=== PATIENT | male | born 1990 | race African-American/Black ===

== ENCOUNTER 2017-02-13 00:53 | Inpatient (IN) ==
[2017-02-13] MEDS: ALBUTEROL 2.5 MG/3 ML NEB RESP TX SCH (02:10)
[2017-02-13 02:35] LABS: Basophils % 0.3 % (0.0-0.8); Eosinophils # 0.2 10*3/uL (0.0-0.87); Eosinophils % 1.7 % (0.00-10.9); Hematocrit 36.6 VOL% (42.0-52.0); Hemoglobin 11.5 GM/DL (14.0-18.0); Immature Granulocytes % 0.8 %; Immature Granulocytes Absolute 0.08 #; Lymphocytes # 1.9 10*3/uL (1.4-4.0); Lymphocytes % 18.5 % (21.2-54.2); Mean Corpuscular HGB Conc 31.4 GM/DL (32-36); Mean Corpuscular Hemoglobin 22 PG (27-34); Mean Platelet Volume 10.4 FL (9.6-12.0); Monocytes # 0.7 10*3/uL (0.11-0.8); Monocytes % 6.9 % (1.7-12.7); Neutrophils # 7.3 10*3/uL (1.4-7.4); Neutrophils % 71.8 % (38.7-73.9); Platelet Count 279 T/CUMM (130-400); Red Blood Count 5.23 MC/CUMM (3.8-5.5); Red Cell Distribution Width 16.3 % (9.3-17.3); White Blood Count 10.1 T/CUMM (4-12)
[2017-02-13 02:53] LABS: INR 1.1; Partial Thromboplastin Time 32.1 SECS (0-40)
[2017-02-13 02:56] LABS: Bilirubin,Total 0.6 MG/DL (0.2-1.0); Calcium 8.6 MG/DL (8.5-10.1); Magnesium 2.1 MG/DL (1.8-2.4); Osmolality,Calculated 279.4 MOS/KG (273-304); Total Protein 6.9 G/DL (6.4-8.3)
[2017-02-13 02:57] LABS: Troponin I Only 0.05 NG/ML (0.00-0.045)
[2017-02-13] MEDS ORDERED: LEVOFLOXACIN INJ 750 MG in PREMIX 1 EACH IV STA (04:24)
[2017-02-13] MEDS ORDERED: LEVOFLOXACIN INJ 150 ML IV ONE (04:38)
--- NOTE | 2017-02-13 05:09 | Emergency Department Note ---
Pavel Sandhu Brittany, am scribing for, and in the presence of, Samantha Ryan MD 01:49. Connor Sandhu Leanne, MD, personally performed the services described in this documentation, ascribed by Jennifer Zhao in my presence, and it is both accurate and complete . Arrival - Arrival Chief Complaint: Shortness of Breath Stated Complaint: sob ED Nursing Triage Note: Pt brought by EMS with c/o SOB. EMS states pt was sat 88 % on arrival. Pt is now on 4L sat 99%. Pt states he was admitted into [facility] this past Tuesday and was discharge on Tuesday for pneumonia. At discharged pt was placed on a zpack. Zpack has been completed, but pt states he stills feel SOB. Mode of Arrival: Stretcher Limitations: No Limitations Source: Patient, RN Notes Reviewed - History of Present Illness HPI Narrative: Patient is a 26 y/o black male presenting to the ED by EMS from home with c/o shortness of breath with an onset of February 06. Patient reports that on Tuesday he presented to [facility] and was admitted with diagnosis of PNA. He was then discharged February 08 with a prescription for a ZPack. Patient states that since discharge he has not gotten any better and due to excessive coughing he has developed abdominal pain and back pain when taking deep breaths. He is unsure if he has had any fever. Patient reports a history significant for CHF and Bronchitis. Patient does utilize at home Albuterol. Per triage note upon EMS arrival to patient's residence he was noted to have an oxygen saturation of 88%, in room on 4L oxygen via [place] patient has sats of 99%.He has no other complaint/pain. Onset (ago): week(s) (1) Consistency: constant Allergies/Adverse Reactions: Allergies Allergy/AdvReac Type Severity Reaction Status Date / Time No Known Allergies Allergy Unverified 02/13/17 01:06 Home Medications: Home Medications Medication Instructions Recorded Confirmed Type Aspirin [Aspirin EC] 81 mg PO DAILY 02/13/17 02/13/17 History Carvedilol [Coreg] 25 mg PO BID 02/13/17 02/13/17 History Cholecalciferol (Vitamin D3) 1,000 unit PO DAILY 02/13/17 02/13/17 History [Vitamin D3] Digoxin 125 mcg PO DAILY 02/13/17 02/13/17 History Hydralazine HCl 25 mg PO BID 02/13/17 02/13/17 History Spironolactone [Aldactone] 25 mg PO DAILY 02/13/17 02/13/17 History hydroCHLOROthiazide 50 mg PO BID 02/13/17 02/13/17 History [Hydrochlorothiazide] Review of System - Review of System 12 point system: reviewed and no additional remarkable complaints except as stated - Review of System Constitutional: Absent: chills, fever Eyes: Absent: vision change Head/Ears/Nose/Throat: Absent: nasal drainage, sore throat Respiratory: Present: cough, respiratory distress, wheezing Cardiovascular: Absent: chest pain, palpitations Gastrointestinal: Present: abdominal pain. Absent: nausea, vomiting, diarrhea, constipation Genitourinary male: Absent: urgency, dysuria, frequency Musculoskeletal: Present: back pain. Absent: arm pain, leg pain, neck pain Skin: Absent: rash Neurological: Absent: headache Psychiatric: Absent: anxiety, depression Hematological/Lymphatic: Absent: easy bleeding, easy bruising Medical,Surgical,& Family Hx - Medical History Cardio: History of: CHF, Hypertension Respiratory: History of: Bronchitis Exam Vital Signs: Vital Signs Temperature 97.1 F L 02/13/17 00:58 Pulse Rate 106 H 02/13/17 02:40 Respiratory Rate 24 02/13/17 02:40 Blood Pressure 124/89 02/13/17 00:58 O2 Sat by Pulse Oximetry 100 02/13/17 02:40 - General General appearance: alert, in no apparent distress, obese (morbidly) - Head Head exam: Present: atraumatic, normocephalic, normal inspection - Eye Eye exam: Present: normal appearance, PERRL, EOMI - ENT ENT exam: Present: normal exam, normal oropharynx - Neck Neck exam: Present: normal inspection, full ROM, trachea midline - Chest Chest inspection: Present: normal inspection, symmetric chest wall rise - Respiratory Respiratory exam: Present: wheezes (wheezes in left upper lobe). Absent: normal lung sounds bilaterally - Cardiovascular Cardiovascular exam: Present: regular rate, normal rhythm, normal heart sounds. Absent: murmur, rubs, gallop - Abdominal Exam Abdominal exam: Present: soft, normal bowel sounds. Absent: distention, tenderness - Extremities Exam Extremities exam: Present: normal inspection - Back Exam Back exam: Present: normal inspection - Neurological Exam Neurological exam: Present: alert, oriented X3, CN II-XII intact. Absent: motor sensory deficit - Psychiatric Psychiatric exam: Present: normal affect, normal mood - Skin Skin exam: Present: warm, dry, intact, normal color Course Course Narrative: troponin bumped. evidence of chf. given levaquin. admit. Results - Labs CBC & BMP: 02/13/17 02:19 02/13/17 02:19 Lab Results: I have reviewed the patients labs Labs: Laboratory Tests 02/13/17 02:19 WBC 10.1 RBC 5.23 Hgb 11.5 L Hct 36.6 L MCV 70.0 L MCH 22 L MCHC 31.4 L RDW 16.3 Plt Count 279 MPV 10.4 Neut % (Auto) 71.8 Lymph % (Auto) 18.5 L [place] % (Auto) 6.9 Eos % (Auto) 1.7 Baso % (Auto) 0.3 Neut # (Auto) 7.3 Lymph # (Auto) 1.9 [place] # (Auto) 0.7 Eos # (Auto) 0.2 Baso # (Auto) 0.0 Immature Gran % 0.8 Nucleated RBC % 0.0 Immature Gran # 0.08 Nucleated RBCs # 0.00 Laboratory Tests 02/13/17 02/13/17 02:19 02:19 INR 1.1 PT Patient/Control Mix 12.0 D-Dimer, Quantitative 1.0 Circ Anticoag PTT 32.1 Sodium 140 Potassium 4.0 Chloride 102 Carbon Dioxide 29 Anion Gap 13.0 BUN 15 Creatinine 1.00 GFR Calculation 229 BUN/Creatinine Ratio 15.00 Glucose 99 Calculated Osmolality 279.4 Calcium 8.6 Magnesium 2.1 Total Bilirubin 0.60 AST 17 ALT 17 Alkaline Phosphatase 54 Troponin I 0.050 H Total Protein 6.9 Albumin 3.0 L Globulin 3.9 H Albumin/Globulin Ratio 0.7 L Laboratory Tests 02/13/17 02:19 B-Natriuretic Peptide 243 H - Diagnostic Findings Procedure: CT - chest: report reviewed by me (Limited study. No gross pulmonary embolism of the main and proximal left central pulmonary artery. Pulmonary embolism cannot be excluded of the right central pulmonary artery and distal segmental and subsegmental branches bilaterally.) Disposition Clinical Impression: Community acquired pneumonia, Elevated troponin, CHF (congestive heart failure) Case discussed with: patient Condition: Guarded
--- NOTE | 2017-02-13 05:37 | Hospitalist History & Physical ---
Assessment and Plan (1) Community acquired pneumonia Status: Acute Assessment and plan: Failed treatment with azithromycin Given IV Levaquin in the emergency department, continue oral Levaquin IV fluids given that he is definitely not an heart failure exacerbation and has some tachycardia Try to identify the organism: Check pneumonia antigens, sputum culture. Blood cultures ordered by ED Current Visit: Yes (2) Elevated troponin Status: Acute Assessment and plan: Negligibly elevated. No chest pain. CT PE protocol was negative. Likely related to his heart failure. Current Visit: Yes (3) CHF (congestive heart failure) Status: Chronic Assessment and plan: Not currently decompensated. Continue home carvedilol and hydralazine and digoxin. Hold spironolactone and HCTZ as I think you need some fluids. He also has torsemide 40 mg twice daily which he apparently takes as needed but is currently out of. Current Visit: Yes Qualifiers: Congestive heart failure type: systolic Congestive heart failure chronicity : chronic Qualified Code(s): I50.22 - Chronic systolic (congestive) heart failure History of Present Illness Chief complaint: Shortness of breath History of present illness: Mr. Guevara is a 26 year old male with past medical history of hypertension, systolic heart failure that presented with a chief complaint of shortness of breath. Onset gradual. Duration 1 week. Associated with a cough that is sometimes productive. Also associated with pleuritic back pain. Illness began about 2 weeks ago with coughing that eventually led to shortness of breath for which he presented to [facility] and was admitted on Tuesday. He was discharged after 1 day on azithromycin. He is not sure that he ever really got much better. He returns today again for the shortness of breath. He is adamant that this is not at all similar to when he has heart failure exacerbations as he has not had orthopnea and his shoes do not feel tight. His PCP is Sameer Beck. I have reviewed the workup performed in the emergency department including lab and imaging data. I discussed his case with emergency department providers. Home Medications Medication Instructions Recorded Confirmed Type Aspirin [Aspirin EC] 81 mg PO DAILY 02/13/17 02/13/17 History Carvedilol [Coreg] 25 mg PO BID 02/13/17 02/13/17 History Cholecalciferol (Vitamin D3) 1,000 unit PO DAILY 02/13/17 02/13/17 History [Vitamin D3] Digoxin 125 mcg PO DAILY 02/13/17 02/13/17 History Hydralazine HCl 25 mg PO BID 02/13/17 02/13/17 History Spironolactone [Aldactone] 25 mg PO DAILY 02/13/17 02/13/17 History hydroCHLOROthiazide 50 mg PO BID 02/13/17 02/13/17 History [Hydrochlorothiazide] Allergies Allergy/AdvReac Type Severity Reaction Status Date / Time No Known Allergies Allergy Unverified 02/13/17 01:06 Medical,Surgical,& Family Hx - Medical History Cardio: History of: CHF, Hypertension Respiratory: History of: Bronchitis - Family History Family History: Reports;: Additional Family History (Patient denied any family history) - Social History Smoking Status: Former smoker Have you smoked in the last 12 months: No Frequency of Alcohol Use: None Type of Drug Use: None Marital Status: Single Lives With:: Parent Functional capacity: independent ambulation Review of systems: - Constitutional Constitutional: Present: Chills absent: fatigue, fever(s), night sweats, weight loss - EENT Eyes: Absent: blurry vision Ears: Absent: decreased hearing, ear pain Nose, mouth and throat: Absent: nasal congestion, sore throat - Cardiovascular Cardiovascular: Absent: chest pain at rest, chest pain with activity, edema, orthopnea, palpitations - Respiratory Respiratory: Present: Cough, dyspnea absent: hemoptysis - Gastrointestinal Gastrointestinal: Present: Nausea vomiting absent: abdominal pain, constipation , diarrhea, dysphagia, hematemesis, hematochezia, melena - Genitourinary Genitourinary: Absent: difficulty urinating, dysuria, hematuria - Musculoskeletal Musculoskeletal: Absent: arthralgias, joint swelling, myalgias - Neurological Neurological: Absent: confusion, dizziness, focal weakness, headache(s), numbness, paresthesias, syncope - Psychiatric Psychiatric: Absent: anxiety, depression - Endocrine Endocrine: Absent: cold intolerance, heat intolerance, polydipsia, polyuria - Hematologic/Lymphatic Hematologic/Lymphatic: Absent: easy bleeding, easy bruising, lymphadenopathy Exam - Constitutional Vitals: Period Temp Pulse Resp BP Sys/Anderson Pulse Ox Last 24 Hr 97.1 F-97.1 F 103-111 22-24 124-124/89-89 97-100 General appearance: morbidly obese, other (Young -[place] male lying on stretcher pleasant and cooperative) Exam: - Eye Eye exam: Present: EOMI. Absent: conjunctival injection, scleral icterus Pupils: Present: - ENT ENT exam: Present: normal external ear exam, normal oropharynx - Expanded ENT Exam Mouth exam: Present: moist - Neck Neck exam: Present: normal inspection. Absent: lymphadenopathy, thyromegaly - Respiratory Respiratory exam: Present: clear to auscultation bilaterally, tachypneic with shallow respirations. Absent: Rales, rhonchi, wheezes - Cardiovascular Cardiovascular exam: Present: regular rhythm, tachycardia. Absent: diastolic murmur, systolic murmur - GI/Abdominal GI/Abdominal exam: Present: normal bowel sounds, soft. Absent: distended, hyperactive bowel sounds, hypoactive bowel sounds, organomegaly, tenderness, rebound - Extremities Exam Extremities exam: Absent: edema - Neurological Exam Neurological exam: Present: alert, oriented X3, CN II-XII intact. Absent: motor sensory deficit - Psychiatric Psychiatric exam: Present: normal affect - Skin Skin exam: Present: warm, dry. Absent: diaphoretic, rash Results - Labs CBC & BMP: 02/13/17 02:19 02/13/17 02:19 - Diagnostic Findings Procedure: Chest x-ray: report reviewed by me, CT - chest: report reviewed by me
--- NOTE | 2017-02-13 08:01 | CT Report ---
EXAM: CT chest PE study DATE: February 13, 2017 COMPARISON: None REASON: Chest pain, shortness of breath Preliminary report was provided by [facility]. TECHNIQUE: Axial images of the chest were obtained after administration of 100 cc of Omnipaque 350 intravenous contrast. Coronal/sagittal reformatted images and coronal/sagittal MIP images were also acquired. The study was performed per pulmonary embolism protocol. Total DLP was 1620.5 mGy*cm. FINDINGS: Pulmonary arteries: Evaluation of the pulmonary arteries is severely limited by artifact related to the patient's body habitus. No obvious pulmonary embolism is seen within the pulmonary trunk or proximal left pulmonary artery. Vascular/heart: The thoracic aorta is normal in size. Evaluation for aortic dissection is limited by poor opacification of the aorta and artifact from patient body habitus. The heart is upper normal in size. No pericardial effusion is seen. Lymph nodes: No suspicious adenopathy is identified at the chest. Chest wall: Unremarkable. Lungs: No pneumothorax or pleural effusion is identified. Motion artifact makes evaluation of the lungs difficult, but there appear to be a few scattered groundglass opacities within both lungs. This could reflect atelectasis or air trapping. Mild pulmonary edema and pneumonia are thought less likely but are not excluded. Bones: No acute osseous process is identified. Upper abdomen: No acute process is seen within the visualized upper abdomen. IMPRESSION: 1. Evaluation of the pulmonary arteries is severely limited by artifact. No obvious pulmonary embolism is seen within the pulmonary trunk or proximal left pulmonary artery. The remaining pulmonary arteries are suboptimally evaluated. 2. Motion artifact makes evaluation of the lungs difficult, but there appear to be a few scattered groundglass opacities within both lungs. This could reflect atelectasis or air trapping. Mild pulmonary edema and pneumonia are thought less likely but are not excluded. PROCEDURE INTERPRETED AT [facility] DEPARTMENT OF RADIOLOGY Final Report Signed by: Dr. Cory Corona
[2017-02-13] MEDS: ENOXAPARIN 40 MG/0.4 ML SYRINGE SUBCUT SCH (08:45)
[2017-02-13] MEDS: DEXTROSE 5% NACL 0.45% 1,000 ML IV SCH ×2 (08:46→22:30)
[2017-02-13] MEDS: ASPIRIN EC 81 MG TABLET PO SCH (09:03)
[2017-02-13] MEDS: CARVEDILOL 25 MG TABLET PO SCH ×2 (09:03→22:30)
[2017-02-13] MEDS: DIGOXIN 0.125 MG TABLET PO SCH (09:03)
[2017-02-13] MEDS: hydrALAZINE 25 MG TABLET PO SCH ×2 (09:06→22:30)
--- NOTE | 2017-02-13 09:22 | XRay Report ---
Referring Physician: Samantha Ryan Exam: XR chest 1V portable Date: February 13, 2017 at 1:54 AM Reason: Shortness of breath Comparison: None Findings: The cardiac silhouette is mildly prominent, but this could be secondary to the portable technique. There is mild scattered haziness within both lungs, mainly on the right. Evaluation is limited by soft tissue artifact, but this may represent atelectasis. Mild pulmonary edema and pneumonia are in the differential but are thought less likely. Follow-up could be performed. No pneumothorax or pleural effusion is identified. No acute osseous process is seen. Impression: 1. The cardiac silhouette is mildly enlarged, but this could be secondary to the portable technique. 2. There is scattered haziness within both lungs, mainly on the right. Evaluation is limited by soft tissue artifact, but this may represent atelectasis. Mild pulmonary edema and pneumonia are in the differential but are thought less likely. Follow-up could be performed. PROCEDURE INTERPRETED AT [facility] DEPARTMENT OF RADIOLOGY Final Report Signed by: Dr. Cory Corona
[2017-02-13] MEDS: ALBUTEROL/IPRATROPIUM 3 ML NEB RESP TX SCH ×4 (11:38→23:59)
--- NOTE | 2017-02-13 13:04 | Hospitalist Progress Note ---
Assessment and Plan (1) Community acquired pneumonia Status: Acute Assessment and plan: Currently the patient is on ceftriaxone 500 mg p.o. every day this should be changed to 750 IV daily with addition of ceftriaxone 2 g IV every day. Evaluate need of antibiotics in the coming 48 hours. Current Visit: Yes (2) Elevated troponin Status: Acute Assessment and plan: This could be secondary to strain given the suggestion of congestive heart failure and existence of such in the past. Question at this point is why would this gentleman going to acute decompensation of chronic disease that was congestive heart failure. He is coronary ischemia in this fluid overload is not clear to me at this point. Patient does have persistent edema to the lower extremities. He does not acknowledge eating a lot of salt in the ensuing days. Current Visit: Yes (3) CHF (congestive heart failure) Status: Chronic Assessment and plan: Patient comes in with acute decompensation of congestive heart failure. Would need to do his echocardiogram. Repeat EKG in the morning. Pursue serial troponins to see if the change. I would add CPK total CPK-MB for verification of all concerns. Patient is to be seen by cardiology consultation will be put in for tomorrow morning. Current Visit: Yes Qualifiers: Congestive heart failure type: systolic Congestive heart failure chronicity : chronic Qualified Code(s): I50.22 - Chronic systolic (congestive) heart failure Hospitalist: Subjective Interval history: Patient has been seen interviewed and examined. This patient was found sitting on the bedside there was some labored breathing. Obese gentleman was admitted to the hospital yesterday with respiratory distress history of obstructive sleep apnea with CPAP at home which he did not bring to the hospital on this admission. Has a history of what is described as pneumonia which was treated at [facility] did not do well decided to come to this hospital. a few days back and sent back home once on Tuesday. I did review the chest x-ray done in the emergency room which shows significant cardiomegaly with a cephalization of blood vessels suggesting pulmonary edema on the background. Size of the heart cannot be certain given the fact that this was on AP view chest x-ray does have history of congestive heart failure he is troponins were elevated initially but I do not see subsequent ones. He has a working diagnosis of a community- acquired pneumonia failure of treatment from home I am concerned about possibility of cardiac source of his respiratory problems. Exam - Constitutional Vitals: Period Temp Pulse Resp BP Sys/Anderson Pulse Ox Last 24 Hr 97.2 F-98.4 F 94-110 20-28 105-135/58-81 93-98 General appearance: other (Morbidly obese gentleman with obvious chronic hypoventilation syndrome) - Head Head exam: Present: normocephalic, atraumatic - Eye Eye exam: Present: EOMI Pupils: Present: - ENT ENT exam: Present: normal oropharynx ( no lesions in the posterior following), other (He has a short thick neck) - Neck Neck exam: Present: other (Midline trachea no stridor no bruits no obvious adenopathy) - Respiratory Respiratory exam: Present: other (Very distant lung sounds because of the chest girth there is no obvious wheezing or rales and not a cellulitis to bronchophony ) - Cardiovascular Cardiovascular exam: Present: regular rate and rhythm - GI/Abdominal GI/Abdominal exam: Present: normal bowel sounds, soft - Extremities Exam Extremities exam: Present: full ROM (Full range of motion), other (Significant stasis dermatitis with wound VAC changes to the skin in the legs) - Back Exam Back exam: Present: normal inspection - Psychiatric Psychiatric exam: Present: normal affect, normal mood - Skin Skin exam: Present: warm, dry, other (Severe history of stasis dermatitis of the tree-bark changes of the skin) Results - Labs CBC & BMP: 02/13/17 02:19 02/13/17 02:19 Lab Results: I have reviewed the past 24 hour labs
[2017-02-14] MEDS: ALBUTEROL/IPRATROPIUM 3 ML NEB RESP TX SCH ×6 (03:17→23:39)
[2017-02-14] MEDS: ENOXAPARIN 40 MG/0.4 ML SYRINGE SUBCUT SCH (09:18)
[2017-02-14] MEDS: hydrALAZINE 25 MG TABLET PO SCH ×2 (09:19→20:40)
[2017-02-14] MEDS: DIGOXIN 0.125 MG TABLET PO SCH (09:19)
[2017-02-14] MEDS: LEVOFLOXACIN 500 MG TABLET PO SCH (09:19)
[2017-02-14] MEDS: ASPIRIN EC 81 MG TABLET PO SCH (09:19)
[2017-02-14] MEDS: CARVEDILOL 25 MG TABLET PO SCH ×2 (09:19→20:40)
--- NOTE | 2017-02-14 13:45 | Hospitalist Progress Note ---
Assessment and Plan (1) Community acquired pneumonia Status: Acute Assessment and plan: Currently the patient is on ceftriaxone 500 mg p.o. every day this should be changed to 750 IV daily with addition of ceftriaxone 2 g IV every day. Evaluate need of antibiotics in the coming 24 hours. Current Visit: Yes (2) Elevated troponin Status: Acute Assessment and plan: This could be secondary to strain given the suggestion of congestive heart failure and existence of such in the past. Question at this point is why would this gentleman going to acute decompensation of chronic disease that was congestive heart failure. Whether this is coronary ischemia or fluid overload is not clear to me at this point. Patient does have persistent edema to the lower extremities. He does not acknowledge eating a lot of salt in the ensuing days. Current Visit: Yes (3) CHF (congestive heart failure) Status: Chronic Assessment and plan: Obtain an echocardiogram. Will obtain cardiology consultation. To that at this point to be checking cardiac markers. Current Visit: Yes Qualifiers: Congestive heart failure type: systolic Congestive heart failure chronicity : chronic Qualified Code(s): I50.22 - Chronic systolic (congestive) heart failure Hospitalist: Subjective Interval history: Patient been seen interviewed and examined and chart has been reviewed. Is still complaining of a lot of shortness of breath with minimal activity. He still did not needs to be on oxygen to maintain his pulse oximetry is above 90. Gentleman has history of chronic hypoventilation syndrome obstructive sleep apnea morbid obesity possible cor pulmonale. Do not have any access to an echocardiogram report at this point. Will need to do one. Will need help from all cardiology colleagues to pinpoint as to whether what we are doing now is optimal for him. Exam - Constitutional Vitals: Period Temp Pulse Resp BP Sys/Anderson Pulse Ox Last 24 Hr 96.5 F-97.9 F 95-108 20-28 116-152/66-83 95-99 General appearance: morbidly obese - Head Head exam: Present: normocephalic, atraumatic - Eye Eye exam: Present: EOMI Pupils: Present: - ENT ENT exam: Present: normal exam - Neck Neck exam: Present: normal inspection - Respiratory Respiratory exam: Present: other (Distant lung sounds no wheezing no rales patient has a large chest girth) - Cardiovascular Cardiovascular exam: Present: regular rate and rhythm - GI/Abdominal GI/Abdominal exam: Present: normal bowel sounds, soft - Extremities Exam Extremities exam: Present: other (Move all 4 limbs.) - Back Exam Back exam: Present: normal inspection - Neurological Exam Neurological exam: Present: alert, oriented X3, CN II-XII intact - Psychiatric Psychiatric exam: Present: normal affect, normal mood - Skin Skin exam: Present: warm, dry, other (Stasis dermatitis in both lower extremities) Results - Labs CBC & BMP: 02/13/17 02:19 02/13/17 02:19 Lab Results: I have reviewed the past 24 hour labs
--- NOTE | 2017-02-14 18:56 | ECHO Report ---
Dashawn Guevara Exam Date: 02/14/2017 15:05 Referring Physician: Technologist: Tessa Torres RDCS Age: 26 Ht (in): 72 Wt (lb): 560 Gender: M Exam Location: [facility] Echo Indications: Community acquired pneumonia, Elevated troponin, Chronic systolic (congestive) heart failure, Morbid (severe) obesity due to excess calories, Respiratory distress, ELINA BP: 132 / 66 HR: 99 Rhythm: Sinus Technical Quality: Good IMPRESSIONS 1. Left ventricle is severely dilated with severe global hypokinesis and ejection fraction of approximately 15%. There is moderate concentric left ventricular hypertrophy. 2. Mildly dilated right ventricle that may be mildly hypokinetic. 3. Moderately dilated right atrium. 4. Severely dilated left atrium. 5. Mild mitral valve regurgitation. 6. Aortic valve is unremarkable. 7. Moderate to severe tricuspid regurgitation. 8. Mild pulmonic valve insufficiency. MEASUREMENTS (Male / Female) Normal Values 2D ECHO LV Diastolic Diameter PLAX 8.6 cm 4.2 - 5.9 / 3.9 - 5.3 cm LV Systolic Diameter PLAX 8.2 cm LV Fractional Shortening PLAX 4.5 % IVS Diastolic Thickness 1.5 cm 0.6 - 1.0 / 0.6 - 0.9 cm LVPW Diastolic Thickness 1.5 cm 0.6 - 1.0 / 0.6 - 0.9 cm RV Internal Dim ED PLAX 4.0 cm Aortic Root Diameter 3.1 cm LA Systolic Diameter LX 7.2 cm 3.0 - 4.0 / 2.7 - 3.8 cm DOPPLER TR Peak Velocity 362.0 cm/s TR Peak Gradient 52.4 mmHg FINDINGS Left Ventricle Severely increased left ventricular cavity size. Moderate left ventricular hypertrophy. Left ventricular ejection fraction is estimated at 15 %. Right Ventricle Mildly increased right ventricular size. Right Atrium Moderately increased right atrial size. Left Atrium Severely increased left atrial size. Mitral Valve Morphologically normal mitral valve. Mild mitral valve regurgitation. Aortic Valve Morphologically normal aortic valve without significant sclerosis or stenosis. There is no aortic regurgitation. Tricuspid Valve Morphologically normal tricuspid valve. [id number] tricuspid valve regurgitation. Tricuspid regurgitation velocities suggest a PAP of 62 mmHg. Pulmonic Valve Morphologically normal pulmonic valve. Mild pulmonary valve regurgitation. Pericardium Normal pericardium without effusion. Aorta Normal ascending aorta dimension. Jimi Forbes MD (Electronically Signed) Final Date: 14 Feb 2017 18:55
[2017-02-15] MEDS: ALBUTEROL/IPRATROPIUM 3 ML NEB RESP TX SCH ×6 (02:40→23:10)
[2017-02-15] MEDS: ENOXAPARIN 40 MG/0.4 ML SYRINGE SUBCUT SCH (08:56)
[2017-02-15] MEDS: LEVOFLOXACIN 500 MG TABLET PO SCH (08:57)
[2017-02-15] MEDS: ASPIRIN EC 81 MG TABLET PO SCH (08:57)
[2017-02-15] MEDS: CARVEDILOL 25 MG TABLET PO SCH ×2 (08:57→20:47)
[2017-02-15] MEDS: hydrALAZINE 25 MG TABLET PO SCH ×2 (08:58→20:50)
[2017-02-15] MEDS: DIGOXIN 0.125 MG TABLET PO SCH (13:25)
--- NOTE | 2017-02-15 14:35 | Hospitalist Progress Note ---
Hospitalist: Subjective Interval history: Pt coughing up blood tinged yellow sputum. No fever. SOB unchanged this am but improved after starting bronchodilators for a short time per pt. No fever. No nausea or vomiting. +BM. Pt thinks his legs are starting to swell. C/O significant HINES with minimal exertion Exam - Constitutional Vitals: Period Temp Pulse Resp BP Sys/Anderson Pulse Ox Last 24 Hr 96.1 F-98.0 F 95-106 17-24 102-128/45-94 94-100 Exam: Morbidly obese, NAD RRR no M CTAB anteriorly, diminished throughout Soft, NT, ND, +BS difficult to assess for HSM or masses given body habitus Warm no c/c/ trace LE edema, Xerosis; ARNOLD Results - Labs CBC & BMP: 02/13/17 02:19 02/13/17 02:19 - Impressions (1) Community acquired pneumonia bilateral possibly due to GPC, GNR, or atypicals Status: Acute Assessment and plan: Currently the patient is on Levaquin 500 mg po daily. Add bronchodilators and Mucinex. Add PEP therapy. oxygen as needed. Blood cultures 02/13- NGTD. Send sputum culture. Current Visit: Yes (2) Elevated troponin Status: Acute Assessment and plan: This could be secondary to strain given the suggestion of congestive heart failure and existence of such in the past. Question at this point is why would this gentleman going to acute decompensation of chronic disease that was congestive heart failure. Whether this is coronary ischemia or fluid overload is not clear to me at this point. Patient does have persistent edema to the lower extremities. He does not acknowledge eating a lot of salt in the ensuing days. Current Visit: Yes (3) CHF (congestive heart failure) systolic EF 15%, cor pulmonale Status: Chronic Assessment and plan: Echocardiogram reviewed. Awaiting final cards recs. Serial cardiac markers. On Bidil and Coreg. Add Torsemide Current Visit: Yes Qualifiers: Congestive heart failure type: systolic Congestive heart failure chronicity : chronic Qualified Code(s): I50.22 - Chronic systolic (congestive) heart failure (4) Chronic hypoventilation syndrome (5) Obstructive sleep apnea with severe pulmonary hypertension - Needs CPAP hs and may need to add Revatio. - CT chest with PE protocol negative for PE but showed bilateral pneumonia - Consult Pulmonology (6) Morbid obesity - weight loss and physical/dietary modifications recommended. DVT prophylaxis D/W pt and nurse and all questions answered. Specialty Discharge - Follow Up or Referrals
[2017-02-15] MEDS ORDERED: ALBUTEROL 2.5 MG/3 ML NEB RESP TX PRN (14:43)
[2017-02-15] MEDS: ALBUTEROL 2.5 MG/3 ML NEB RESP TX SCH (19:15)
[2017-02-15] MEDS: ISOSORBIDE DINITRATE 20 MG TABLET PO SCH (20:47)
[2017-02-15] MEDS: TORSEMIDE 20 MG TABLET PO SCH (20:47)
[2017-02-16] MEDS: ALBUTEROL 2.5 MG/3 ML NEB RESP TX SCH ×4 (00:22→19:10)
[2017-02-16] MEDS: ALBUTEROL/IPRATROPIUM 3 ML NEB RESP TX SCH ×6 (03:10→23:10)
[2017-02-16 07:15] LABS: Basophils % 0.3 % (0.0-0.8); Eosinophils # 0.2 10*3/uL (0.0-0.87); Eosinophils % 1.5 % (0.00-10.9); Hematocrit 34.6 VOL% (42.0-52.0); Hemoglobin 10.6 GM/DL (14.0-18.0); Immature Granulocytes % 0.9 %; Immature Granulocytes Absolute 0.09 #; Lymphocytes # 1.9 10*3/uL (1.4-4.0); Lymphocytes % 18.4 % (21.2-54.2); Mean Corpuscular HGB Conc 30.6 GM/DL (32-36); Mean Corpuscular Hemoglobin 22 PG (27-34); Mean Corpuscular Volume 70.8 FL (87-102); Mean Platelet Volume 10.6 FL (9.6-12.0); Monocytes # 0.8 10*3/uL (0.11-0.8); Monocytes % 7.4 % (1.7-12.7); Neutrophils # 7.2 10*3/uL (1.4-7.4); Neutrophils % 71.5 % (38.7-73.9); Platelet Count 280 T/CUMM (130-400); Red Blood Count 4.89 MC/CUMM (3.8-5.5); Red Cell Distribution Width 16.3 % (9.3-17.3); White Blood Count 10.1 T/CUMM (4-12)
--- NOTE | 2017-02-16 07:42 | Pulmonology Consult Note ---
Assessment and Plan (1) Community acquired pneumonia Status: Acute Assessment and plan: With the yellow sputum production it is likely that he has bronchopneumonia. Agree with empiric antibiotics. White blood count only 10,000. Patient has not had fever. Current Visit: Yes (2) CHF (congestive heart failure) Status: Chronic Assessment and plan: BNP only slightly elevated to 60. Ejection fraction is 15%. He has some chronic leg edema it has not gotten worse lately. Continue cautious diuresis. Current Visit: Yes Qualifiers: Congestive heart failure type: systolic Congestive heart failure chronicity : chronic Qualified Code(s): I50.22 - Chronic systolic (congestive) heart failure (3) Morbid (severe) obesity with alveolar hypoventilation Status: Chronic Assessment and plan: I suspect he has obesity hypoventilation syndrome. We need ABGs. May need to use Diamox on him. Current Visit: Yes (4) Obstructive sleep apnea on CPAP Status: Chronic Assessment and plan: Patient has been noncompliant with his CPAP. Will get sleep services to sleep. He apparently does not like the way his nasal pillars fit. Current Visit: Yes History of Present Illness Chief complaint: Cough shortness of breath History of present illness: Mr. Guevara is a 26 year old male who weighs 562 pounds. He has obstructive sleep apnea and severe cardiomyopathy with ejection fraction 15%. He has had a cough and congestion for about a month he says. He is coughing up some yellowish sputum and has had some blood-streaked sputum. He apparently was hospitalized for about a day at [facility] a little over a week ago. He was sent home taking Zithromax. He was readmitted here a few days ago with increased cough shortness of breath congestion. His chest x-ray and chest CT show some groundglass type infiltrates primarily in the right lung. Difficult to tell whether this is a bronchopneumonia or pulmonary edema or both. His chest wall thickness makes it difficult to visualize on plain x-ray. The patient is alert and able to answer questions. He relates that he got a CPAP machine about 2 years ago after a sleep study. He gets it from [employer]. He has not been using it much at all. Apparently he has nasal pillars and they do not fit right. He brought his machine in but says that some tubing is broken on it at present. He had a chest CT done with no evidence of pulmonary embolism. Again there is groundglass infiltrates bilaterally that I would think is most likely pulmonary edema. Patient's echo has shown a 15% ejection fraction and secondary pulmonary hypertension. Estimated peak from the artery pressure of 62. There have been no ABGs done. Patient has chronic leg edema but says it has not been worse. Home Medications Medication Instructions Recorded Confirmed Type Aspirin [Aspirin EC] 81 mg PO DAILY 02/13/17 02/13/17 History Carvedilol [Coreg] 25 mg PO BID 02/13/17 02/13/17 History Cholecalciferol (Vitamin D3) 1,000 unit PO DAILY 02/13/17 02/13/17 History [Vitamin D3] Digoxin 125 mcg PO DAILY 02/13/17 02/13/17 History Hydralazine HCl 25 mg PO BID 02/13/17 02/13/17 History Losartan Potassium 100 mg PO DAILY 02/13/17 02/13/17 History Spironolactone [Aldactone] 25 mg PO DAILY 02/13/17 02/13/17 History Torsemide 20 mg PO BID 02/13/17 02/13/17 History hydroCHLOROthiazide 50 mg PO BID 02/13/17 02/13/17 History [Hydrochlorothiazide] Allergies Allergy/AdvReac Type Severity Reaction Status Date / Time No Known Allergies Allergy Unverified 02/13/17 01:06 12 point system: reviewed and no additional remarkable complaints except as stated - Constitutional Constitutional: Present: chills - Cardiovascular Cardiovascular: Present: dyspnea, dyspnea on exertion, orthopnea - Respiratory Respiratory: Present: cough, dyspnea, hemoptysis, change in phlegm color - Gastrointestinal Gastrointestinal: Present: nausea Exam (Pulmonay) H&P - Constitutional Vitals: Period Temp Pulse Resp BP Sys/Anderson Pulse Ox Last 24 Hr 96.8 F-98.7 F 89-108 18-24 96-128/45-73 92-99 Exam: Patient is alert and seems oriented. Vital signs normal except pulse around 105. O2 sat 97% on nasal oxygen. Pupils react to light. He has some exophoria. Throat is clear. Neck supple no bruits. Chest sounds clear. Breath sounds are distant and difficult to tell. Heart rapid rate normal rhythm no murmurs. Abdomen grand obese unable to palpate abdominal organs. Extremities she has some chronic woody edema in both lower extremities calves are nontender. Medical,Surgical,& Family Hx - Medical History Cardio: History of: CHF, Hypertension Respiratory: History of: Bronchitis, Pneumonia (this admission) - Family History Family History: Reports;: Additional Family History (Patient denied any family history) - Social History Smoking Status: Former smoker Frequency of Alcohol Use: None Type of Drug Use: None Results - Labs CBC & BMP: 02/16/17 07:03 02/13/17 02:19 Lab Results: I have reviewed the past 24 hour labs - Diagnostic Findings Procedure: Chest x-ray: image reviewed by me (Hazy infiltrate more on the right than the left.), CT - chest: image reviewed by me (Groundglass infiltrates again more on the right than the left. Suggestive more of pulmonary edema.) Specialty Discharge - Follow Up or Referrals
[2017-02-16 07:49] LABS: Calcium 8.5 MG/DL (8.5-10.1); Magnesium 2.2 MG/DL (1.8-2.4); Osmolality,Calculated 273.8 MOS/KG (273-304)
[2017-02-16 08:00] LABS: Albumin 3.1 G/DL (3.4-5.0); Calcium 8.5 MG/DL (8.5-10.1); Free T4 (Free Thyroxine) 1.56 NG/DL (0.76-1.46); Osmolality,Calculated 273.8 MOS/KG (273-304); Phosphorous 4.6 MG/DL (2.5-4.9); Thyroid Stimulating Hormone 1.6 uIU/ml (0.358-3.74)
[2017-02-16] MEDS: ENOXAPARIN 40 MG/0.4 ML SYRINGE SUBCUT SCH (09:14)
[2017-02-16] MEDS: hydrALAZINE 25 MG TABLET PO SCH ×2 (09:16→20:58)
[2017-02-16] MEDS: ASPIRIN EC 81 MG TABLET PO SCH (09:16)
[2017-02-16] MEDS: DIGOXIN 0.125 MG TABLET PO SCH (09:16)
[2017-02-16] MEDS: CARVEDILOL 25 MG TABLET PO SCH ×2 (09:17→20:56)
[2017-02-16] MEDS: LEVOFLOXACIN 500 MG TABLET PO SCH (09:19)
[2017-02-16] MEDS: TORSEMIDE 20 MG TABLET PO SCH ×2 (09:21→20:57)
[2017-02-16] MEDS: ISOSORBIDE DINITRATE 20 MG TABLET PO SCH ×3 (09:22→20:57)
[2017-02-16 09:33] LABS: Allen Test Positive
[2017-02-16 09:34] LABS: ABG Base Excess 3.2 MMOL/L (-2.5-2.5); ABG HCO3 27.3 MMOL/L (20-26); ABG Oxygen Saturation 98.2 % (95-100); ABG PCO2 50.6 MM HG (35-48); ABG PH 7.371 (7.35-7.45); ABG TCO2 26.5 MMOL/L (23-27)
--- NOTE | 2017-02-16 10:23 | Hospitalist Progress Note ---
Hospitalist: Subjective Interval history: Pt states SOB and cough has improved. No cp. Slept well. Tolerating po. No abd pain. BLE is better. Exam - Constitutional Vitals: Period Temp Pulse Resp BP Sys/Anderson Pulse Ox Last 24 Hr 96.8 F-98.7 F 89-108 18-24 96-128/45-73 92-99 Exam: Morbidly obese, NAD RRR no M CTAB anteriorly, diminished throughout Soft, NT, ND, +BS difficult to assess for HSM or masses given body habitus Warm no c/c/ no edema, Xerosis; ARNOLD Results - Labs CBC & BMP: 02/16/17 07:03 02/16/17 07:03 - Impressions (1) Community acquired pneumonia bilateral possibly due to GPC, GNR, or atypicals Status: Acute Assessment and plan: Currently the patient is on Levaquin 500 mg po daily. Cont bronchodilators, Mucinex and pulmonary toileting with PEP/ IPPB therapy. oxygen as needed. Blood cultures 02/13- NGTDx x 3 days. 02/15 Sputum culture no growth to date. Current Visit: Yes (2) Elevated troponin Status: Acute Assessment and plan: This could be secondary to strain given the suggestion of congestive heart failure. Cards consulted and awaiting input. Current Visit: Yes (3) CHF (congestive heart failure) systolic EF 15%, cor pulmonale Status: Chronic Assessment and plan: Echocardiogram reviewed. Awaiting final cards recs. Serial cardiac markers. On Bidil, Coreg and Torsemide ? Diamox per pulm Current Visit: Yes Qualifiers: Congestive heart failure type: systolic Congestive heart failure chronicity : chronic Qualified Code(s): I50.22 - Chronic systolic (congestive) heart failure (4) Chronic hypoventilation syndrome - mgt per pulm. F/u ABG (5) Obstructive sleep apnea with severe pulmonary hypertension - Needs CPAP hs and may need to add Revatio. - CT chest with PE protocol negative for PE but showed bilateral pneumonia - Appreciate Pulmonology (6) Morbid obesity - weight loss and physical/dietary modifications recommended. DVT prophylaxis D/W pt, nurse, and charge nurse and all questions answered. Specialty Discharge - Follow Up or Referrals
--- NOTE | 2017-02-16 14:02 | Sleep Medicine Consult ---
Assessment and Plan (1) Obstructive sleep apnea on CPAP Status: Chronic Assessment and plan: Mr. Guevara's current CPAP supplies are in poor condition and should be disposed of. His device is outdated and does not have up to date software needed to ensure his sleep apnea is controlled. I will order a CPAP autotitration using one of the sleep labs devices with a pressure ranging from 8cm-20cm to determine his most effective pressure setting as he has gained over 40 pounds since his original diagnosis. He will need to utilize his device throughout his sleep time along with oxygen. I reviewed the results of his overnight polysomnography from March 2014 and explained the severity of his sleep apnea as well as the risks and benefits of treatment. He is willing to try CPAP therapy again. I will request his data be downloaded from his device in the morning to assess his response. Current Visit: Yes History of Present Illness Chief complaint: SOB/Sleep apnea History of present illness: Mr. Guevara is a 26 year old male with a known history of obstructive sleep apnea. He underwent overnight polysomnography in March 2014 and was positive for moderate obstructive sleep apnea with a diagnostic AHI of 28.2 and oxygen desaturations as low as 79%. His study was done in a split-night fashion due to the severity of findings and he was titrated to a CPAP pressure of 8 cm. At the time of diagnosis, he was 516 pounds. He did not maintain routine follow up appointments with the sleep clinic. His CPAP device was a "donation" from a family member and he reports using CPAP faithfully for 3-4 months following his diagnosis. He discontinued CPAP due to mask and tubing issues and has remained non-compliant with therapy ever since. He was admitted to the hospital with cough and shortness of breath earlier this week. He is currently being treated for community-acquired pneumonia along with congestive heart failure. His echocardiogram shows an ejection fraction of only 15%. He is morbidly obese and now weighs 560 pounds. He is sitting upright utilizing oxygen per nasal cannula at 2 L/min. He is not short of breath currently and is feeling a little better today. Home Medications Medication Instructions Recorded Confirmed Type Aspirin [Aspirin EC] 81 mg PO DAILY 02/13/17 02/13/17 History Carvedilol [Coreg] 25 mg PO BID 02/13/17 02/13/17 History Cholecalciferol (Vitamin D3) 1,000 unit PO DAILY 02/13/17 02/13/17 History [Vitamin D3] Digoxin 125 mcg PO DAILY 02/13/17 02/13/17 History Hydralazine HCl 25 mg PO BID 02/13/17 02/13/17 History Losartan Potassium 100 mg PO DAILY 02/13/17 02/13/17 History Spironolactone [Aldactone] 25 mg PO DAILY 02/13/17 02/13/17 History Torsemide 20 mg PO BID 02/13/17 02/13/17 History hydroCHLOROthiazide 50 mg PO BID 02/13/17 02/13/17 History [Hydrochlorothiazide] Allergies Allergy/AdvReac Type Severity Reaction Status Date / Time No Known Allergies Allergy Unverified 02/13/17 01:06 - Constitutional Constitutional: Present: daytime sleepiness, excessive sweating, fatigue, night sweats, stops breathing during sleep, weight gain - EENT Nose, mouth and throat: Present: nasal congestion - Cardiovascular Cardiovascular: Present: dyspnea on exertion, edema - Respiratory Respiratory: Present: cough, snoring - Gastrointestinal Gastrointestinal: Present: heartburn - Musculoskeletal Musculoskeletal: Present: limited range of motion - Endocrine Endocrine: Present: heat intolerance Exam (Pulmonay) H&P - Constitutional Vitals: Period Temp Pulse Resp BP Sys/Anderson Pulse Ox Last 24 Hr 96.8 F-98.7 F 89-108 18-24 96-128/45-62 92-99 General appearance: morbidly obese - Head Head exam: Present: normocephalic, atraumatic - ENT ENT exam: Present: other (Mallampati class IV, large tongue) - Expanded ENT Exam ENT Exam Mouth exam: Present: moist - Neck Neck exam: Absent: lymphadenopathy, tenderness - Respiratory Respiratory exam: Present: decreased breath sounds, wheezes - Cardiovascular Cardiovascular exam: Present: regular rate and rhythm - GI/Abdominal GI/Abdominal exam: Present: normal bowel sounds, soft. Absent: tenderness - Extremities Exam Extremities exam: Present: edema (2+ edema with compression hose intact) - Neurological Exam Neurological exam: Present: oriented X3 - Psychiatric Psychiatric exam: Present: normal mood - Skin Skin exam: Present: warm, dry Medical,Surgical,& Family Hx - Medical History Cardio: History of: CHF, Hypertension Endocrine: No history of: Diabetes Mellitus (NIDDM) Respiratory: History of: Bronchitis, Obstructive Sleep Apnea, Pneumonia (this admission), Respiratory Problems Gastrointestinal: History of: GERD - Family History Family History: Reports;: Additional Family History (Patient denied any family history) - Social History Smoking Status: Former smoker Frequency of Alcohol Use: None Type of Drug Use: None Results - Labs CBC & BMP: 02/16/17 07:03 02/16/17 07:03 Specialty Discharge - Follow Up or Referrals
--- NOTE | 2017-02-16 16:07 | Cardiology Consult Note ---
I, Sivan Carroll RN, am scribing for, and in the presence of, Avery Muse MD 16:07. Assessment and Plan - Time spent with patient Time spent with patient: Greater than 30 minutes (due to assessment, planning, documentation, med review) (1) CHF (congestive heart failure) Status: Chronic Assessment and plan: I examined and interviewed Mr. Guevara February 15, 2017 ordered medicine for him. However I did not complete the note until today. This is a late entry for my assessment and plan yesterday. 26-year-old severely, morbidly obese AA male with past medical history of hypertension, systolic CHF, hypoventilation syndrome, and obstructive sleep apnea. He is now admitted for treatment of pneumonia. Echocardiogram this admission with severely reduced LV function, LV ejection fraction is estimated at 15%, and severe pulmonary hypertension with a PA pressure of 62 mmHg. INITIAL CONSULT FEBRUARY 15, 2017: ASSESSMENT/PLAN: 1. 26-year-old morbidly obese bpm with reported long history of cardiomyopathy/ heart failure followed by cardiology in [facility], with untreated ELINA, now being treated with pneumonia (admitted at [facility] for less than 2 days, and came here when he did not improve), with medical noncompliance (missed several days prior to admission), with severe cardiomyopathy and at least moderate LVH ( EF 15%) associated with significant pulmonary hypertension (PA P 62 mmHg plus RAP) 2. Add nitrates to hydralazine 3. Continue Coreg and diuresis 4. Follow-up electrolytes and renal function 5. Consult sleep medicine to see if adjustments can be made "my machine is not working right", and help him with compliance with CPAP. 6. He drinks quite a bit of juice; discussed avoiding all calorie drinks; he only drink eats once or twice a daywe discussed eating 3-4 times per day to help him lose weight. We briefly discussed bariatric intervention, but I believe he is not stable enough for that at this time. Current Visit: Yes Qualifiers: Congestive heart failure type: systolic Congestive heart failure chronicity : chronic Qualified Code(s): I50.22 - Chronic systolic (congestive) heart failure (2) Community acquired pneumonia Status: Acute Current Visit: Yes (3) Troponin I above reference range Status: Acute Current Visit: Yes (4) Obstructive sleep apnea on CPAP Status: Chronic Current Visit: Yes (5) Hypertension Status: Chronic Current Visit: Yes (6) Morbid (severe) obesity with alveolar hypoventilation Status: Chronic Current Visit: Yes History of Present Illness - Data of Consult Patient: new to practice Consult date: 02/15/17 Requesting Physician: Efrain Garcia - Consult Narrative Reason for consult: CHF History of present illness: PRIMARY COMPETITIVE INTELLIGENCE ANALYST: DR. RANGEL ([place]) PCP: DR. GIBSON DURAND CARDIOLOGY CONSULT NOTE: CHF Mr. Guevara is a 26 year old black male who is not routinely followed by [facility] cardiology. Past medical history includes hypertension, systolic CHF, chronic bronchitis, obstructive sleep apnea with CPAP, and severe morbid obesity. Patient presented to [facility] ER on 02/13 with complaints of shortness of breath , and was noted to have oxygen saturation level of 88% with improvement after initiation of supplemental O2. He reported he had been previously evaluated at [facility] emergency room on 02/12, was diagnosed with pneumonia, prescribed azithromycin, and was discharged home. He continued to feel short of breath, had excessive coughing and developed some abdominal pain and back pain with deep breathing, and this prompted his presentation to [facility]. Chest x-ray showed scattered haziness bilaterally and more dominant and right lung, and this was suggestive of atelectasis. X-ray also revealed possible mild pulmonary edema and/or underlying pneumonia. Normal troponin level is 0.050 and BNP 243. He denied recent or current orthopnea, PND, or increase in LE edema. Chest CT obtained and was a technically difficult study due to patient's body habitus, but no evidence of pulmonary embolus appreciated. Patient was admitted per hospital medicine for further observation and treatment. Echocardiogram on 02/13 with moderate LVH and severely reduced LV ejection fraction at 15%, moderate to severe TR with a PA pressure of 62 mmHg. Cardiology has been consulted for evaluation of congestive heart failure. Patient seen and examined. He is sleeping soundly at this time, and he does not appear to be experiencing any respiratory distress. He arouses easily, and he does admit to some shortness of breath but does not feel that it has worsened in severity since admission. Patient reportedly uses CPAP machine regularly, but he did not bring this from home to the hospital. He is being supplemented with oxygen via nasal cannula. Denies any recent or current chest pain. Reports he typically uses 2 pillows to breathe comfortably while sleeping at night at home. Denies acute orthopnea or recent need to use more than 2 pillows. No PND, palpitations, or presyncope. He is noted to have bilateral lower extremity edema, nonpitting, with venous stasis change seen. No recent fever or chills. Productive cough with yellow sputum production. His blood pressure is controlled with systolic BP 110 -130 mmHg. EKG is sinus rhythm, pulse rate 90s, and no disturbance seen. No labs available for review this AM. CC: Dorina Ellis MD - Home Medications and Allergies Home Medications: Home Medications Medication Instructions Recorded Confirmed Type Aspirin [Aspirin EC] 81 mg PO DAILY 02/13/17 02/13/17 History Carvedilol [Coreg] 25 mg PO BID 02/13/17 02/13/17 History Cholecalciferol (Vitamin D3) 1,000 unit PO DAILY 02/13/17 02/13/17 History [Vitamin D3] RX: Digoxin 125 mcg PO DAILY 02/13/17 02/13/17 History RX: Hydralazine HCl 25 mg PO BID 02/13/17 02/13/17 History RX: Losartan Potassium 100 mg PO DAILY 02/13/17 02/13/17 History RX: Torsemide 20 mg PO BID 02/13/17 02/13/17 History RX: hydroCHLOROthiazide 50 mg PO BID 02/13/17 02/13/17 History [Hydrochlorothiazide] Spironolactone [Aldactone] 25 mg PO DAILY 02/13/17 02/13/17 History Allergies/Adverse Reactions: Allergies Allergy/AdvReac Type Severity Reaction Status Date / Time No Known Allergies Allergy Unverified 02/13/17 01:06 - Constitutional Constitutional: Present: as per HPI - EENT Eyes: Present: as per HPI Nose, mouth and throat: Present: as per HPI - Cardiovascular Cardiovascular: Present: as per HPI - Respiratory Respiratory: Present: as per HPI - Genitourinary Genitourinary: Present: as per HPI - Musculoskeletal Musculoskeletal: Present: as per HPI - Neurological Neurological: Present: as per HPI - Psychiatric Psychiatric: Present: as per HPI - Endocrine Endocrine: Present: as per HPI - Hematologic/Lymphatic Hematologic/Lymphatic: Present: as per HPI Medical,Surgical,& Family Hx - Medical History Cardio: History of: CHF, Hypertension No history of: Cardiac Dysrhythmia, [place], Valvular Heart Disease Psychological: No history of: Depression Neurology: No history of: Dementia, TIA Endocrine: No history of: Diabetes Mellitus (IDDM), Diabetes Mellitus (NIDDM), Thyroid Disorder Rheumatology: No history of;: Fibromyalgia, Gout Respiratory: History of: Bronchitis, Obstructive Sleep Apnea, Pulmonary Hypertension, Pneumonia (this admission) No history of: COPD Renal: No history of: Renal Failure Gastrointestinal: No history of: GERD, Gastrointestinal Bleed, Hepatitis Musculoskeletal: No history of: Back/Neck Problems Hematology: No history of: Anemia, Bleeding Problems Other: No history of: Cancer - Surgical History Cardiac Surgeries: Patient Denies: Internal Defibrillator - Family History Family History: Reports;: Additional Family History (Patient denied any family history) - Social History Smoking Status: Former smoker Frequency of Alcohol Use: None Type of Drug Use: None Physical Examination Vital Signs Temp Pulse Resp BP Pulse Ox 97.1 F L 111 H 22 124/89 98 02/13/17 00:53 02/13/17 00:53 02/13/17 00:53 02/13/17 00:53 02/13/17 00:53 General: Present: No Apparent Distress, Other (severely, morbidly obese) HEENT: Present: PERRL, Normocephaly, Mucus Membranes Moist. Absent: Jaundice Neck: Present: Supple Neck, Midline Trachea, Other (unable to adequately assess JVD due to body habitus) Cardiac: Present: Reg Rate and Rhythm, No Murmur, Tachycardia. Absent: Bradycardia Lungs: Present: Normal Exam, Clear Ascult./Percussion (lung sounds distant, hard to auscultate due to severe body habitus), Oxygen, No Wheeze, Rales, Rhonchi Neuro: Present: Grossly Intact. Absent: Numbness, Weakness, Resting Tremor, Essential Tremor Abdomen: Present: Soft, Active Bowel Sounds, Other (morbidly obese). Absent: Tender, Firm Skin: Present: Clear. Absent: Bruising Extremities: Present: No Clubbing, No Cyanosis, Normal Upper Extr. Pulses (2-3+ bilaterally), Normal Lower Extr. Pulses (1-2+ bilaterally), Edema (trace pretibial), Other (chronic venous stasis changes to BLE's.) Result/EKG - Labs CBC & BMP: 02/16/17 07:03 02/16/17 07:03 Lab Results: I have reviewed the past 24 hour labs Labs: Laboratory Results - last 24 hr 02/16/17 02/16/17 02/16/17 07:03 07:03 07:03 WBC 10.1 RBC 4.89 Hgb 10.6 L Hct 34.6 L MCV 70.8 L MCH 22 L MCHC 30.6 L RDW 16.3 Plt Count 280 MPV 10.6 Neut % (Auto) 71.5 Lymph % (Auto) 18.4 L [place] % (Auto) 7.4 Eos % (Auto) 1.5 Baso % (Auto) 0.3 Neut # (Auto) 7.2 Lymph # (Auto) 1.9 [place] # (Auto) 0.8 Eos # (Auto) 0.2 Baso # (Auto) 0.0 Immature Gran % 0.9 Nucleated RBC % 0.0 Immature Gran # 0.09 Nucleated RBCs # 0.00 ABG pH ABG pCO2 ABG pO2 ABG HCO3 ABG Total CO2 ABG O2 Saturation ABG Base Excess FiO2 Sodium 137 Potassium 4.0 Chloride 101 Carbon Dioxide 30 Anion Gap 10.0 BUN 16 Creatinine 1.10 GFR Calculation 204 BUN/Creatinine Ratio 14.00 Glucose 102 Calculated Osmolality 273.8 Calcium 8.5 Phosphorus 4.6 Magnesium B-Natriuretic Peptide 442 H Albumin 3.1 L Free T4 1.56 H TSH 3rd Generation 1.600 02/16/17 02/16/17 07:03 09:21 WBC RBC Hgb Hct MCV MCH MCHC RDW Plt Count MPV Neut % (Auto) Lymph % (Auto) [place] % (Auto) Eos % (Auto) Baso % (Auto) Neut # (Auto) Lymph # (Auto) [place] # (Auto) Eos # (Auto) Baso # (Auto) Immature Gran % Nucleated RBC % Immature Gran # Nucleated RBCs # ABG pH 7.371 ABG pCO2 50.6 H ABG pO2 109.0 H ABG HCO3 27.3 H ABG Total CO2 26.5 ABG O2 Saturation 98.2 ABG Base Excess 3.2 H FiO2 28.00 Sodium 137 Potassium 4.0 Chloride 101 Carbon Dioxide 30 Anion Gap 10.0 BUN 16 Creatinine 1.10 GFR Calculation 204 BUN/Creatinine Ratio 14.00 Glucose 103 Calculated Osmolality 273.8 Calcium 8.5 Phosphorus Magnesium 2.2 B-Natriuretic Peptide Albumin Free T4 TSH 3rd Generation - Diagnostic Findings Procedure: Chest x-ray: image reviewed by me, report reviewed by me, CT - chest : image reviewed by me, report reviewed by me - EKG EKG results: interpreted by me, no acute changes EKG shows: sinus rhythm Micha Sandhu Randall Scott, MD, personally performed the services described in this documentation, ascribed by Sivan Carroll RN in my presence, and it is both accurate and complete 607 .
--- NOTE | 2017-02-16 16:11 | Cardiology Progress Note ---
I, Sivan Carroll RN, am scribing for, and in the presence of, Avery Muse MD 16:11. Assessment and Plan - Time spent with patient Time spent with patient: Greater than 30 minutes (1) CHF (congestive heart failure) Status: Chronic Assessment and plan: 26-year-old severely, morbidly obese AA male with past medical history of hypertension, systolic CHF, hypoventilation syndrome, and obstructive sleep apnea. He is now admitted for treatment of pneumonia. Echocardiogram this admission with severely reduced LV function, LV ejection fraction is estimated at 15%, and severe pulmonary hypertension with a PA pressure of 62 mmHg. INITIAL CONSULT FEBRUARY 15, 2017: ASSESSMENT/PLAN: 1. 26-year-old morbidly obese bpm with reported long history of cardiomyopathy/ heart failure followed by cardiology in [facility], with untreated ELINA, now being treated with pneumonia (admitted at [place] for less than 2 days, and came here when he did not improve), with medical noncompliance (missed several days prior to admission), with severe cardiomyopathy and at least moderate LVH ( EF 15%) associated with significant pulmonary hypertension (PA P 62 mmHg plus RAP) 2. Add nitrates to hydralazine 3. Continue Coreg and diuresis 4. Follow-up electrolytes and renal function 5. Consult sleep medicine to see if adjustments can be made "my machine is not working right", and help him with compliance with CPAP. 6. He drinks quite a bit of juice; discussed avoiding all calorie drinks; he only drink eats once or twice a daywe discussed eating 3-4 times per day to help him lose weight. We briefly discussed bariatric intervention, but I believe he is not stable enough for that at this time. UPDATE FEBRUARY 16, 2017: ASSESSMENT/PLAN: 1. Hemodynamically stable, tolerating addition of isosorbide 2. Sleep medicine is assessing to try to help treat his ELINA 3. Increase Coreg to 37.5 mg twice daily which will be maximum dosage for him 4. Continue hydralazine and diuresis 5. Check follow-up renal function and electrolytes 6. I have size again need for significant weight loss (drinking cranberry juice ) Current Visit: Yes Qualifiers: Congestive heart failure type: systolic Congestive heart failure chronicity : chronic Qualified Code(s): I50.22 - Chronic systolic (congestive) heart failure (2) Community acquired pneumonia Status: Acute Current Visit: Yes (3) Troponin I above reference range Status: Acute Current Visit: Yes (4) Obstructive sleep apnea on CPAP Status: Chronic Current Visit: Yes (5) Hypertension Status: Chronic Current Visit: Yes (6) Morbid (severe) obesity with alveolar hypoventilation Status: Chronic Current Visit: Yes Cardiology - PN: Subj Interval history: PRIMARY AUDIT REVIEWER: DR. RANGEL ([place]) PCP: DR. GIBSON DURAND SUMMARY: Mr. Guevara is a 26 year old black male who is not routinely followed by [facility] cardiology. Past medical history includes hypertension, systolic CHF, chronic bronchitis, obstructive sleep apnea with CPAP, and severe morbid obesity. Patient presented to [facility] ER on 02/13 with complaints of shortness of breath , and was noted to have oxygen saturation level of 88% with improvement after initiation of supplemental O2. He reported he had been previously evaluated at [place] emergency room on 02/12, was diagnosed with pneumonia, prescribed azithromycin, and was discharged home. He continued to feel short of breath, had excessive coughing and developed some abdominal pain and back pain with deep breathing, and this prompted his presentation to [facility]. Chest x-ray showed scattered haziness bilaterally and more dominant and right lung, and this was suggestive of atelectasis. X-ray also revealed possible mild pulmonary edema and/or underlying pneumonia. Normal troponin level is 0.050 and BNP 243. He denied recent or current orthopnea, PND, or increase in LE edema. Chest CT obtained and was a technically difficult study due to patient's body habitus, but no evidence of pulmonary embolus appreciated. Patient was admitted per hospital medicine for further observation and treatment. Echocardiogram on 02/13 with moderate LVH and severely reduced LV ejection fraction at 15%, moderate to severe TR with a PA pressure of 62 mmHg. Cardiology has been consulted for evaluation of congestive heart failure. FEBRUARY 16, 2017: Patient is sitting up on side of bed this afternoon in no apparent distress. He is awake and alert. Denies chest pain or discomfort. Reports he still continues to experience shortness of breath and productive cough, but it has not worsened in severity since previous exam. Admits to easy fatigability and dyspnea on exertion getting up to bedside chair and with ambulation to bathroom and back to bed. He is eating lunch at this time with good appetite, no N/V. Pulse rate 90s and regular. BP is suboptimally controlled today with SBP 170-205 and DBP 100-115. Potassium is 5.2, magnesium 2.4. WBC is elevated to 14,700 today and sputum C&S pending. Creatinine improved and is 2.1 today. Exam (Progress Note) - Constitutional Vitals: Period Temp Pulse Resp BP Sys/Anderson Pulse Ox Last 24 Hr 96.8 F-98.7 F 89-108 18-24 96-128/45-73 92-99 Exam: General: Present: No Apparent Distress, Other (severely, morbidly obese) HEENT: Present: PERRL, Normocephaly, Mucus Membranes Moist. Absent: Jaundice Neck: Present: Supple Neck, Midline Trachea, Other (unable to adequately assess JVD due to body habitus) Cardiac: Present: Reg Rate and Rhythm, No Murmur, Tachycardia. Absent: Bradycardia Lungs: Present: Normal Exam, Clear Ascult./Percussion (lung sounds distant, hard to auscultate due to severe body habitus), Oxygen, No Wheeze, Rales, Rhonchi Neuro: Present: Grossly Intact. Absent: Numbness, Weakness, Resting Tremor, Essential Tremor Abdomen: Present: Soft, Active Bowel Sounds, Other (morbidly obese). Absent: Tender, Firm Skin: Present: Clear. Absent: Bruising Extremities: Present: No Clubbing, No Cyanosis, Normal Upper Extr. Pulses (2-3+ bilaterally), Normal Lower Extr. Pulses (1-2+ bilaterally), Edema (trace pretibial), Other (chronic venous stasis changes to BLE's.) Result/EKG - Labs CBC & BMP: 02/16/17 07:03 02/16/17 07:03 Lab Results: I have reviewed the past 24 hour labs Labs: Laboratory Results - last 24 hr 02/16/17 02/16/17 02/16/17 07:03 07:03 07:03 WBC 10.1 RBC 4.89 Hgb 10.6 L Hct 34.6 L MCV 70.8 L MCH 22 L MCHC 30.6 L RDW 16.3 Plt Count 280 MPV 10.6 Neut % (Auto) 71.5 Lymph % (Auto) 18.4 L [place] % (Auto) 7.4 Eos % (Auto) 1.5 Baso % (Auto) 0.3 Neut # (Auto) 7.2 Lymph # (Auto) 1.9 [place] # (Auto) 0.8 Eos # (Auto) 0.2 Baso # (Auto) 0.0 Immature Gran % 0.9 Nucleated RBC % 0.0 Immature Gran # 0.09 Nucleated RBCs # 0.00 ABG pH ABG pCO2 ABG pO2 ABG HCO3 ABG Total CO2 ABG O2 Saturation ABG Base Excess FiO2 Sodium 137 Potassium 4.0 Chloride 101 Carbon Dioxide 30 Anion Gap 10.0 BUN 16 Creatinine 1.10 GFR Calculation 204 BUN/Creatinine Ratio 14.00 Glucose 102 Calculated Osmolality 273.8 Calcium 8.5 Phosphorus 4.6 Magnesium B-Natriuretic Peptide 442 H Albumin 3.1 L Free T4 1.56 H TSH 3rd Generation 1.600 02/16/17 02/16/17 07:03 09:21 WBC RBC Hgb Hct MCV MCH MCHC RDW Plt Count MPV Neut % (Auto) Lymph % (Auto) [place] % (Auto) Eos % (Auto) Baso % (Auto) Neut # (Auto) Lymph # (Auto) [place] # (Auto) Eos # (Auto) Baso # (Auto) Immature Gran % Nucleated RBC % Immature Gran # Nucleated RBCs # ABG pH 7.371 ABG pCO2 50.6 H ABG pO2 109.0 H ABG HCO3 27.3 H ABG Total CO2 26.5 ABG O2 Saturation 98.2 ABG Base Excess 3.2 H FiO2 28.00 Sodium 137 Potassium 4.0 Chloride 101 Carbon Dioxide 30 Anion Gap 10.0 BUN 16 Creatinine 1.10 GFR Calculation 204 BUN/Creatinine Ratio 14.00 Glucose 103 Calculated Osmolality 273.8 Calcium 8.5 Phosphorus Magnesium 2.2 B-Natriuretic Peptide Albumin Free T4 TSH 3rd Generation - EKG EKG results: interpreted by me, no acute changes EKG shows: sinus rhythm Specialty Discharge - Follow Up or Referrals IMicha Randall Scott, MD, personally performed the services described in this documentation, ascribed by Sivan Carroll RN in my presence, and it is both accurate and complete 611 .
[2017-02-17] MEDS: ALBUTEROL/IPRATROPIUM 3 ML NEB RESP TX SCH ×6 (03:20→23:14)
[2017-02-17] MEDS: ALBUTEROL 2.5 MG/3 ML NEB RESP TX SCH ×4 (03:20→19:48)
[2017-02-17 04:41] LABS: Basophils % 0.3 % (0.0-0.8); Eosinophils # 0.2 10*3/uL (0.0-0.87); Hematocrit 34.7 VOL% (42.0-52.0); Hemoglobin 10.5 GM/DL (14.0-18.0); Immature Granulocytes % 0.8 %; Immature Granulocytes Absolute 0.08 #; Lymphocytes # 1.7 10*3/uL (1.4-4.0); Mean Corpuscular HGB Conc 30.3 GM/DL (32-36); Mean Corpuscular Hemoglobin 22 PG (27-34); Mean Corpuscular Volume 71.4 FL (87-102); Mean Platelet Volume 10.8 FL (9.6-12.0); Monocytes # 0.8 10*3/uL (0.11-0.8); Monocytes % 8.1 % (1.7-12.7); Neutrophils # 6.8 10*3/uL (1.4-7.4); Neutrophils % 70.8 % (38.7-73.9); Platelet Count 286 T/CUMM (130-400); Red Blood Count 4.86 MC/CUMM (3.8-5.5); Red Cell Distribution Width 16.4 % (9.3-17.3); White Blood Count 9.6 T/CUMM (4-12)
[2017-02-17 05:17] LABS: Calcium 8.3 MG/DL (8.5-10.1); Free T4 (Free Thyroxine) 1.43 NG/DL (0.76-1.46); Magnesium 2.1 MG/DL (1.8-2.4); Osmolality,Calculated 279.5 MOS/KG (273-304); Potassium 3.9 MMOL/L (3.5-5.1); Risk Ratio 3.46; Thyroid Stimulating Hormone 2.09 uIU/ml (0.358-3.74); VLDL CHOLESTEROL 12.8 MG/DL
--- NOTE | 2017-02-17 07:21 | Pulmonology Progress Note ---
Pulmonary - PN: Subj Interval history: This 26-year-old white male has severe obstructive sleep apnea and obesity hypoventilation syndrome. His PCO2 yesterday was 50 on 3 L of nasal oxygen with a PO2 of 108. We need to reduce his oxygen to 1 L during the day and he may not need any at all during the daytime. Just needs an oxygen saturation of 88% or higher. He must be compliant with his CPAP at night. Appreciate Dr. Pina's help in getting his equipment updated. He of course also has severe cardiomyopathy. Exam (Progress Note) - Constitutional Vitals: Period Temp Pulse Resp BP Sys/Anderson Pulse Ox Last 24 Hr 96.9 F-98.1 F 91-102 17-21 94-125/36-85 93-99 Exam: Patient is asleep wearing his facemask CPAP. He is arousable. Vital signs normal other than his weight of approximately 560 pounds. His pupils were reactive neck is supple. Chest sounds clear. Heart normal rate and rhythm no murmurs. Abdomen grand obese. Extremities he has some chronic nonpitting edema in his lower legs. Calves nontender. Results - Labs CBC & BMP: 02/17/17 04:29 02/17/17 04:29 Lab Results: I have reviewed the past 24 hour labs Assessment and Plan (1) Community acquired pneumonia Status: Acute Assessment and plan: With the yellow sputum production it is likely that he has bronchopneumonia. Agree with empiric antibiotics. White blood count only 10,000. Patient has not had fever. 02/17/2017 he is being empirically treated for pneumonia. Probably has a patchy infiltrate in the right lung. Had change in his sputum color to yellow. Would treat him for about a week with antibiotics. Current Visit: Yes (2) CHF (congestive heart failure) Status: Chronic Assessment and plan: BNP only slightly elevated to 60. Ejection fraction is 15%. He has some chronic leg edema it has not gotten worse lately. Continue cautious diuresis. 02/17/2017 severe cardiomyopathy. I think his fluid status is about right at present. Current Visit: Yes Qualifiers: Congestive heart failure type: systolic Congestive heart failure chronicity : chronic Qualified Code(s): I50.22 - Chronic systolic (congestive) heart failure (3) Morbid (severe) obesity with alveolar hypoventilation Status: Chronic Assessment and plan: I suspect he has obesity hypoventilation syndrome. We need ABGs. May need to use Diamox on him. 02/17/2017 long-term weight loss is very important. I am adding a little bit of Diamox due to the elevated PCO2. Need to watch his pH. Want to get his bicarb level down to about 23 or 24. Current Visit: Yes (4) Obstructive sleep apnea on CPAP Status: Chronic Assessment and plan: Patient has been noncompliant with his CPAP. Will get sleep services to sleep. He apparently does not like the way his nasal pillars fit. 02/17/2017 compliant with his CPAP last night. Will be very important going forward. Current Visit: Yes Specialty Discharge - Follow Up or Referrals
[2017-02-17] MEDS: DIGOXIN 0.125 MG TABLET PO SCH (10:45)
[2017-02-17] MEDS: CARVEDILOL 25 MG TABLET PO SCH ×2 (10:46→21:00)
[2017-02-17] MEDS: ISOSORBIDE DINITRATE 20 MG TABLET PO SCH ×3 (10:47→21:01)
[2017-02-17] MEDS: TORSEMIDE 20 MG TABLET PO SCH (10:48)
[2017-02-17] MEDS: ASPIRIN EC 81 MG TABLET PO SCH (10:49)
[2017-02-17] MEDS: acetaZOLAMIDE 250 MG TABLET PO SCH ×2 (10:49→21:10)
[2017-02-17] MEDS: LEVOFLOXACIN 500 MG TABLET PO SCH (10:50)
[2017-02-17] MEDS: ENOXAPARIN 40 MG/0.4 ML SYRINGE SUBCUT SCH (10:51)
[2017-02-17] MEDS: hydrALAZINE 25 MG TABLET PO SCH ×2 (10:52→21:07)
--- NOTE | 2017-02-17 11:30 | Hospitalist Progress Note ---
Hospitalist: Subjective Interval history: SOB improving. Coughing up thick yellow sputum better today. No fever. No nausea or vomiting. Exam - Constitutional Vitals: Period Temp Pulse Resp BP Sys/Anderson Pulse Ox Last 24 Hr 96.8 F-98.1 F 82-150 16-22 94-125/36-85 93-99 Exam: Morbidly obese, NAD RRR no M Occasional scattered rhonchi diffusely diminished throughout Soft, NT, ND, +BS difficult to assess for HSM or masses given body habitus Warm no c/c/ trace edema, Xerosis; ARNOLD - Expanded ENT Exam Mouth exam: Present: moist Results - Labs CBC & BMP: 02/17/17 04:29 02/17/17 04:29 - Impressions (1) Community acquired pneumonia bilateral possibly due to GPC, GNR, or atypicals Status: Acute Assessment and plan: Currently the patient is on Levaquin 500 mg po daily. Cont bronchodilators, Mucinex and pulmonary toileting with PEP/ IPPB therapy. oxygen as needed. Blood cultures 02/13- NGTDx x 3 days. 02/15 Sputum culture no growth to date. pulm following. Current Visit: Yes (2) Elevated troponin Status: Acute Assessment and plan: This could be secondary to strain given the suggestion of congestive heart failure. Cards following. Recs reviewed. Outpatient cath. Current Visit: Yes (3) CHF (congestive heart failure) systolic EF 15%, cor pulmonale Status: Chronic Assessment and plan: Echocardiogram reviewed. Awaiting final cards recs. Serial cardiac markers. On Bidil, Coreg and Torsemide. Pulm has plans for Diamox today to get HCO3 down Current Visit: Yes Qualifiers: Congestive heart failure type: systolic Congestive heart failure chronicity : chronic Qualified Code(s): I50.22 - Chronic systolic (congestive) heart failure (4) Chronic hypoventilation syndrome - mgt per pulm. ABG reviewed (5) Obstructive sleep apnea with severe pulmonary hypertension - CPAP hs and may need to add Revatio. Will defer this to pulm - CT chest with PE protocol negative for PE but showed bilateral pneumonia - Pulmonology and Sleep medicine following (6) Morbid obesity - weight loss and physical/dietary modifications recommended. DVT prophylaxis D/W pt. Discharge pending pulm recs. Specialty Discharge - Follow Up or Referrals
--- NOTE | 2017-02-17 16:41 | Sleep Medicine Progress Note ---
Assessment and Plan (1) Obstructive sleep apnea on CPAP Status: Chronic Assessment and plan: We will continue with auto titration CPAP while hospitalized. We will work on procuring a device for him at discharge. Current Visit: Yes Sleep Medicine Subjective Interval history: Patient did very well with auto titration CPAP last night. He slept with it 7 hours and 28 minutes and his best pressure appeared to be 9.5 cm. With that, his AHI was 2.9. He really liked his CPAP mask. I explained to the patient that we have a problem because of his insurance coverage. He is [place]. His insurance will not purchase CPAP equipment or supplies. That is why he was given a used machine a few years ago when he was diagnosed. We may be able to find him a device that is used that will be similar to the one he is currently using. He may have to purchase mask and supplies from a DME provider to get this donated to him. He got this through [employer] previously and we will contact them regarding the same for him. Exam (Progress Note) - Constitutional Vitals: Period Temp Pulse Resp BP Sys/Anderson Pulse Ox Last 24 Hr 96.8 F-98.1 F 82-150 16-22 94-125/36-64 93-100 Exam: He is alert and responsive in no acute distress. Neck is supple but it feels though he has some goiter. Chest with good air movement no significant wheeze or rhonchi. Cardiac exam reveals a regular rhythm without murmur or gallop. Abdomen obese nontender without palpable hepatosplenomegaly or mass. Extremities with chronic venous insufficiency changes. Results - Labs CBC & BMP: 02/17/17 04:29 02/17/17 04:29 Lab Results: I have reviewed the past 24 hour labs Specialty Discharge - Follow Up or Referrals
--- NOTE | 2017-02-17 17:41 | Cardiology Progress Note ---
I, Sivan Carroll RN, am scribing for, and in the presence of, Avery Muse MD 17:41. Assessment and Plan - Time spent with patient Time spent with patient: Greater than 30 minutes (1) CHF (congestive heart failure) Status: Chronic Assessment and plan: 26-year-old severely, morbidly obese AA male with past medical history of hypertension, systolic CHF, hypoventilation syndrome, and obstructive sleep apnea. He is now admitted for treatment of pneumonia. Echocardiogram this admission with severely reduced LV function, LV ejection fraction is estimated at 15%, and severe pulmonary hypertension with a PA pressure of 62 mmHg. INITIAL CONSULT FEBRUARY 15, 2017: ASSESSMENT/PLAN: 1. 26-year-old morbidly obese bpm with reported long history of cardiomyopathy/ heart failure followed by cardiology in [facility], with untreated ELINA, now being treated with pneumonia (admitted at [facility] for less than 2 days, and came here when he did not improve), with medical noncompliance (missed several days prior to admission), with severe cardiomyopathy and at least moderate LVH ( EF 15%) associated with significant pulmonary hypertension (PA P 62 mmHg plus RAP) 2. Add nitrates to hydralazine 3. Continue Coreg and diuresis 4. Follow-up electrolytes and renal function 5. Consult sleep medicine to see if adjustments can be made "my machine is not working right", and help him with compliance with CPAP. 6. He drinks quite a bit of juice; discussed avoiding all calorie drinks; he only drink eats once or twice a daywe discussed eating 3-4 times per day to help him lose weight. We briefly discussed bariatric intervention, but I believe he is not stable enough for that at this time. UPDATE FEBRUARY 16, 2017: ASSESSMENT/PLAN: 1. Hemodynamically stable, tolerating addition of isosorbide 2. Sleep medicine is assessing to try to help treat his ELINA 3. Increase Coreg to 37.5 mg twice daily which will be maximum dosage for him 4. Continue hydralazine and diuresis 5. Check follow-up renal function and electrolytes 6. I have size again need for significant weight loss (drinking cranberry juice ) UPDATE FEBRUARY 17, 2017: ASSESSMENT/PLAN: 1. He is feeling better today "I have not slept a good a long time"; it is his understanding that he slept for 7 hours with the CPAP on 2. We discussed again his absolute need to lose some weight in the long run. 3. Tolerating increase Coreg 4. Start low-dose ARB valsartan 40 minutes twice daily 5. Check EKG given episodes of tachycardia 6. Tolerating hydralazine/nitrates 7. Change Demadex to 40 mg daily with plans to increase to 80 mg daily day if needed Current Visit: Yes Qualifiers: Congestive heart failure type: systolic Congestive heart failure chronicity : chronic Qualified Code(s): I50.22 - Chronic systolic (congestive) heart failure (2) Community acquired pneumonia Status: Acute Current Visit: Yes (3) Troponin I above reference range Status: Acute Current Visit: Yes (4) Obstructive sleep apnea on CPAP Status: Chronic Current Visit: Yes (5) Hypertension Status: Chronic Current Visit: Yes (6) Morbid (severe) obesity with alveolar hypoventilation Status: Chronic Current Visit: Yes Cardiology - PN: Subj Interval history: PRIMARY TELEPHONE ANSWERER: DR. RANGEL (GILBERT) PCP: DR. GIBSON DURAND SUMMARY: Mr. Guevara is a 26 year old black male who is not routinely followed by [facility] cardiology. Past medical history includes hypertension, systolic CHF, chronic bronchitis, obstructive sleep apnea with CPAP, and severe morbid obesity. Patient presented to [facility] ER on 02/13 with complaints of shortness of breath , and was noted to have oxygen saturation level of 88% with improvement after initiation of supplemental O2. He reported he had been previously evaluated at [facility] emergency room on 02/12, was diagnosed with pneumonia, prescribed azithromycin, and was discharged home. He continued to feel short of breath, had excessive coughing and developed some abdominal pain and back pain with deep breathing, and this prompted his presentation to [facility]. Chest x-ray showed scattered haziness bilaterally and more dominant and right lung, and this was suggestive of atelectasis. X-ray also revealed possible mild pulmonary edema and/or underlying pneumonia. Normal troponin level is 0.050 and BNP 243. He denied recent or current orthopnea, PND, or increase in LE edema. Chest CT obtained and was a technically difficult study due to patient's body habitus, but no evidence of pulmonary embolus appreciated. Patient was admitted per hospital medicine for further observation and treatment. Echocardiogram on 02/13 with moderate LVH and severely reduced LV ejection fraction at 15%, moderate to severe TR with a PA pressure of 62 mmHg. Cardiology has been consulted for evaluation of congestive heart failure. FEBRUARY 17, 2017: Today, patient is sitting up on side of bed. He is awake and alert, pleasant. He has been evaluated by sleep medicine, CPAP equipment has been updated, and after using CPAP last night, patient says he feels he has "more energy" today. Continues to experience mild shortness of breath and rest and slightly worse with exertion, and he feels it is "about the same as yesterday." No chest pain or other discomfort. Productive cough noted, and today coughing is his biggest complaint. Sputum C&S 02/15 negative, final results pending. LE edema is slightly improved. Pulse 90s and regular. Systolic BP ranging 95-105 mmHg. Labs overall unremarkable. Normal WBC, electrolytes are within acceptable range, and renal function adequate with creatinine 1.0, GFR 204. Normal TSH and Free T4 this morning. Exam (Progress Note) - Constitutional Vitals: Period Temp Pulse Resp BP Sys/Anderson Pulse Ox Last 24 Hr 96.8 F-98.1 F 82-102 16-21 94-125/36-85 93-99 Exam: General: Present: No Apparent Distress, Other (severely, morbidly obese) HEENT: Present: PERRL, Normocephaly, Mucus Membranes Moist. Absent: Jaundice Neck: Present: Supple Neck, Midline Trachea, Other (unable to adequately assess JVD due to body habitus) Cardiac: Present: Reg Rate and Rhythm, No Murmur, Tachycardia. Absent: Bradycardia Lungs: Present: Normal Exam, Clear Ascult./Percussion (lung sounds distant, hard to auscultate due to severe body habitus), Oxygen, No Wheeze, Rales, Rhonchi Neuro: Present: Grossly Intact. Absent: Numbness, Weakness, Resting Tremor, Essential Tremor Abdomen: Present: Soft, Active Bowel Sounds, Other (morbidly obese). Absent: Tender, Firm Skin: Present: Clear. Absent: Bruising Extremities: Present: No Clubbing, No Cyanosis, Normal Upper Extr. Pulses (2-3+ bilaterally), Normal Lower Extr. Pulses (1-2+ bilaterally), Edema (BLE's, some improvement today), Other (chronic venous stasis changes to BLE's.) Result/EKG - Labs CBC & BMP: 02/17/17 04:29 02/17/17 04:29 Lab Results: I have reviewed the past 24 hour labs Labs: Laboratory Results - last 24 hr 02/17/17 02/17/17 04:29 04:29 WBC 9.6 RBC 4.86 Hgb 10.5 L Hct 34.7 L MCV 71.4 L MCH 22 L MCHC 30.3 L RDW 16.4 Plt Count 286 MPV 10.8 Neut % (Auto) 70.8 Lymph % (Auto) 18.0 L [place] % (Auto) 8.1 Eos % (Auto) 2.0 Baso % (Auto) 0.3 Neut # (Auto) 6.8 Lymph # (Auto) 1.7 [place] # (Auto) 0.8 Eos # (Auto) 0.2 Baso # (Auto) 0.0 Immature Gran % 0.8 Nucleated RBC % 0.0 Immature Gran # 0.08 Nucleated RBCs # 0.00 Sodium 139 Potassium 3.9 Chloride 102 Carbon Dioxide 28 Anion Gap 12.9 BUN 19 H Creatinine 1.10 GFR Calculation 204 BUN/Creatinine Ratio 17.00 Glucose 108 H Calculated Osmolality 279.5 Calcium 8.3 L Magnesium 2.1 Triglycerides 64 Cholesterol 90 LDL Cholesterol 63.0 VLDL Cholesterol 12.8 HDL Cholesterol 26 L Heart Disease Risk Ratio 3.46 Free T4 1.43 TSH 3rd Generation 2.090 - EKG EKG results: interpreted by me, no acute changes EKG shows: sinus rhythm Specialty Discharge - Follow Up or Referrals IMicha Randall Scott, MD, personally performed the services described in this documentation, ascribed by Sivan Carroll RN in my presence, and it is both accurate and complete 741 .
[2017-02-17] MEDS: VALSARTAN 80 MG TABLET PO SCH (21:01)
[2017-02-18] MEDS: ALBUTEROL 2.5 MG/3 ML NEB RESP TX SCH ×5 (00:21→23:57)
[2017-02-18] MEDS: ALBUTEROL/IPRATROPIUM 3 ML NEB RESP TX SCH ×4 (02:58→20:22)
[2017-02-18 04:58] LABS: Basophils % 0.3 % (0.0-0.8); Eosinophils # 0.2 10*3/uL (0.0-0.87); Eosinophils % 1.9 % (0.00-10.9); Hematocrit 36.1 VOL% (42.0-52.0); Hemoglobin 10.9 GM/DL (14.0-18.0); Immature Granulocytes % 0.9 %; Immature Granulocytes Absolute 0.09 #; Lymphocytes # 1.8 10*3/uL (1.4-4.0); Lymphocytes % 18.1 % (21.2-54.2); Mean Corpuscular HGB Conc 30.2 GM/DL (32-36); Mean Corpuscular Hemoglobin 22 PG (27-34); Mean Corpuscular Volume 72.3 FL (87-102); Mean Platelet Volume 11.1 FL (9.6-12.0); Monocytes # 0.9 10*3/uL (0.11-0.8); Neutrophils % 69.8 % (38.7-73.9); Platelet Count 283 T/CUMM (130-400); Red Blood Count 4.99 MC/CUMM (3.8-5.5); Red Cell Distribution Width 16.3 % (9.3-17.3)
--- NOTE | 2017-02-18 08:22 | Hospitalist Progress Note ---
Hospitalist: Subjective Interval history: Pt thinks leg swelling is worse today. No fever. No cp. Cough improved. No nausea or vomiting. +BM without difficulty. HINES persists. Exam - Constitutional Vitals: Period Temp Pulse Resp BP Sys/Anderson Pulse Ox Last 24 Hr 97.0 F-98.4 F 88-150 20-24 93-133/42-90 96-100 Exam: Morbidly obese, NAD RRR no M CTAB nonlabored, diminished throughout Soft, NT, ND, +BS difficult to assess for HSM or masses given body habitus Warm no c/c/ trace- +1 LE edema, Xerosis; ARNOLD - Expanded ENT Exam Mouth exam: Present: moist Results - Labs CBC & BMP: 02/18/17 03:07 02/18/17 04:00 - Impressions (1) Community acquired pneumonia bilateral possibly due to GPC, GNR, or atypicals Status: Acute Assessment and plan: Currently the patient is on Levaquin 500 mg po daily. Cont bronchodilators, Mucinex and pulmonary toileting with PEP/ IPPB therapy. oxygen as needed. Blood cultures 02/13- NGTDx x 5 days. 02/15 Sputum culture no growth to date. pulm following. Current Visit: Yes (2) Elevated troponin Status: Acute Assessment and plan: This could be secondary to strain given the suggestion of congestive heart failure. Cards following. Recs reviewed. Outpatient cath. Current Visit: Yes (3) CHF (congestive heart failure) systolic EF 15%, cor pulmonale Status: Chronic Assessment and plan: Echocardiogram reviewed. Awaiting final cards recs. Serial cardiac markers. On Bidil, Coreg and Torsemide (dose increased). On Diamox per pulm and received Lasix IV x 1 today. Watch output and creatinine Current Visit: Yes Qualifiers: Congestive heart failure type: systolic Congestive heart failure chronicity : chronic Qualified Code(s): I50.22 - Chronic systolic (congestive) heart failure (4) Chronic hypoventilation syndrome - mgt per pulm. ABG reviewed (5) Obstructive sleep apnea with severe pulmonary hypertension - CPAP hs and may need to add Revatio. Will defer this to pulm - CT chest with PE protocol negative for PE but showed bilateral pneumonia - Pulmonology and Sleep medicine following (6) Morbid obesity - weight loss and physical/dietary modifications recommended. DVT prophylaxis D/W pt. Discharge pending pulm recs. HOpefully dc soon. Labs in am Specialty Discharge - Follow Up or Referrals
[2017-02-18] MEDS ORDERED: FUROSEMIDE 40 MG/4 ML VIAL IV ONE (08:48)
[2017-02-18 08:51] LABS: Albumin 3.1 G/DL (3.4-5.0); Calcium 8.3 MG/DL (8.5-10.1); Magnesium 2.4 MG/DL (1.8-2.4); Osmolality,Calculated 278.5 MOS/KG (273-304)
--- NOTE | 2017-02-18 08:51 | Pulmonology Progress Note ---
Pulmonary - PN: Subj Interval history: This 26-year-old white male has severe obstructive sleep apnea and obesity hypoventilation syndrome. His PCO2 yesterday was 50 on 3 L of nasal oxygen with a PO2 of 108. We need to reduce his oxygen to 1 L during the day and he may not need any at all during the daytime. Just needs an oxygen saturation of 88% or higher. He must be compliant with his CPAP at night. Appreciate Dr. Pina's help in getting his equipment updated. He of course also has severe cardiomyopathy. Patient used CPAP night before last but a little less so last night. He said that there was no water put in the humidifier. This morning he was asleep where he has nasal oxygen. He still short of breath and has a good bit of leg edema. I am going to give him some extra IV Lasix. It will be a while before he can mobilize enough edema. I have started him on low-dose Diamox. We need to watch for acidosis. Exam (Progress Note) - Constitutional Vitals: Period Temp Pulse Resp BP Sys/Anderson Pulse Ox Last 24 Hr 97.0 F-98.4 F 88-150 20-24 93-133/42-90 96-100 Exam: Patient is alert, on nasal oxygen. Vital signs normal other than his weight of approximately 560 pounds. His pupils were reactive neck is supple. Chest sounds clear. Heart normal rate and rhythm no murmurs. Abdomen grand obese. Extremities he has some chronic nonpitting edema in his lower legs. Calves nontender. Results - Labs CBC & BMP: 02/18/17 03:07 02/17/17 04:29 Lab Results: I have reviewed the past 24 hour labs Assessment and Plan (1) Community acquired pneumonia Status: Acute Assessment and plan: With the yellow sputum production it is likely that he has bronchopneumonia. Agree with empiric antibiotics. White blood count only 10,000. Patient has not had fever. 02/17/2017 he is being empirically treated for pneumonia. Probably has a patchy infiltrate in the right lung. Had change in his sputum color to yellow. Would treat him for about a week with antibiotics. 02/18/2017 continuing empiric antibiotics. He is on Levaquin. Sputum culture shows normal kathie. Blood cultures negative 2. Current Visit: Yes (2) CHF (congestive heart failure) Status: Chronic Assessment and plan: BNP only slightly elevated to 60. Ejection fraction is 15%. He has some chronic leg edema it has not gotten worse lately. Continue cautious diuresis. 02/17/2017 severe cardiomyopathy. I think his fluid status is about right at present. 02/18/2017 severe cardiomyopathy. Still has marked peripheral edema. Bumping with Lasix Current Visit: Yes Qualifiers: Congestive heart failure type: systolic Congestive heart failure chronicity : chronic Qualified Code(s): I50.22 - Chronic systolic (congestive) heart failure (3) Morbid (severe) obesity with alveolar hypoventilation Status: Chronic Assessment and plan: I suspect he has obesity hypoventilation syndrome. We need ABGs. May need to use Diamox on him. 02/17/2017 long-term weight loss is very important. I am adding a little bit of Diamox due to the elevated PCO2. Need to watch his pH. Want to get his bicarb level down to about 23 or 24. 02/18/2017 bicarb level is 28. Trying to diurese him. Weight is stable. Firmly reminded patient of the importance of using the CPAP every night and learning how to take care of his own equipment when he gets it. Current Visit: Yes (4) Obstructive sleep apnea on CPAP Status: Chronic Assessment and plan: Patient has been noncompliant with his CPAP. Will get sleep services to sleep. He apparently does not like the way his nasal pillars fit. 02/17/2017 compliant with his CPAP last night. Will be very important going forward. 02/18/2017 arrangements being made for new equipment at home. Appreciate Dr. Pina's help. Current Visit: Yes Specialty Discharge - Follow Up or Referrals
[2017-02-18] MEDS ORDERED: TORSEMIDE 20 MG TABLET PO SCH ×2 (09:00→11:00)
[2017-02-18] MEDS: ENOXAPARIN 40 MG/0.4 ML SYRINGE SUBCUT SCH (09:45)
[2017-02-18] MEDS: acetaZOLAMIDE 250 MG TABLET PO SCH ×2 (09:45→21:50)
[2017-02-18] MEDS: CARVEDILOL 25 MG TABLET PO SCH ×2 (09:46→21:50)
[2017-02-18] MEDS: LEVOFLOXACIN 500 MG TABLET PO SCH (09:47)
[2017-02-18] MEDS: VALSARTAN 80 MG TABLET PO SCH ×2 (09:48→21:49)
[2017-02-18] MEDS: ISOSORBIDE DINITRATE 20 MG TABLET PO SCH ×3 (09:48→21:49)
[2017-02-18] MEDS: DIGOXIN 0.125 MG TABLET PO SCH (09:48)
[2017-02-18] MEDS: hydrALAZINE 25 MG TABLET PO SCH ×2 (09:49→21:50)
--- NOTE | 2017-02-18 10:54 | Cardiology Progress Note ---
I, Sivan Carroll RN, am scribing for, and in the presence of, Avery Muse MD 10:54. Assessment and Plan - Time spent with patient Time spent with patient: Greater than 30 minutes (1) CHF (congestive heart failure) Status: Chronic Assessment and plan: 26-year-old severely, morbidly obese AA male with past medical history of hypertension, systolic CHF, hypoventilation syndrome, and obstructive sleep apnea. He is now admitted for treatment of pneumonia. Echocardiogram this admission with severely reduced LV function, LV ejection fraction is estimated at 15%, and severe pulmonary hypertension with a PA pressure of 62 mmHg. INITIAL CONSULT FEBRUARY 15, 2017: ASSESSMENT/PLAN: 1. 26-year-old morbidly obese bpm with reported long history of cardiomyopathy/ heart failure followed by cardiology in [facility], with untreated ELINA, now being treated with pneumonia (admitted at [place] for less than 2 days, and came here when he did not improve), with medical noncompliance (missed several days prior to admission), with severe cardiomyopathy and at least moderate LVH ( EF 15%) associated with significant pulmonary hypertension (PA P 62 mmHg plus RAP) 2. Add nitrates to hydralazine 3. Continue Coreg and diuresis 4. Follow-up electrolytes and renal function 5. Consult sleep medicine to see if adjustments can be made "my machine is not working right", and help him with compliance with CPAP. 6. He drinks quite a bit of juice; discussed avoiding all calorie drinks; he only drink eats once or twice a daywe discussed eating 3-4 times per day to help him lose weight. We briefly discussed bariatric intervention, but I believe he is not stable enough for that at this time. UPDATE FEBRUARY 16, 2017: ASSESSMENT/PLAN: 1. Hemodynamically stable, tolerating addition of isosorbide 2. Sleep medicine is assessing to try to help treat his ELINA 3. Increase Coreg to 37.5 mg twice daily which will be maximum dosage for him 4. Continue hydralazine and diuresis 5. Check follow-up renal function and electrolytes 6. I have size again need for significant weight loss (drinking cranberry juice ) UPDATE FEBRUARY 17, 2017: ASSESSMENT/PLAN: 1. He is feeling better today "I have not slept a good a long time"; it is his understanding that he slept for 7 hours with the CPAP on 2. We discussed again his absolute need to lose some weight in the long run. 3. Tolerating increase Coreg 4. Start low-dose ARB valsartan 40 minutes twice daily 5. Check EKG given episodes of tachycardia 6. Tolerating hydralazine/nitrates 7. Change Demadex to 40 mg daily with plans to increase to 80 mg daily day if needed UPDATE FEBRUARY 18, 2017: ASSESSMENT/PLAN: 1. Dyspnea is unchanged today, but he did tolerate CPAP again last night 2. He is tolerating increase Coreg and valsartan as well as nitrates/isosorbide 3. Increase Demadex to 80 mg daily, and spironolactone 25 g daily; his renal function electrolytes are unremarkable. 4. Discussed his need to avoid sugar/simple carbohydrates Current Visit: Yes Qualifiers: Congestive heart failure type: systolic Congestive heart failure chronicity : chronic Qualified Code(s): I50.22 - Chronic systolic (congestive) heart failure (2) Community acquired pneumonia Status: Acute Current Visit: Yes (3) Troponin I above reference range Status: Acute Current Visit: Yes (4) Obstructive sleep apnea on CPAP Status: Chronic Current Visit: Yes (5) Hypertension Status: Chronic Current Visit: Yes (6) Morbid (severe) obesity with alveolar hypoventilation Status: Chronic Current Visit: Yes Cardiology - PN: Subj Interval history: PRIMARY IRRADIATED FUEL HANDLER: DR. RANGEL ([place]) PCP: DR. GIBSON DURAND SUMMARY: Mr. Guevara is a 26 year old black male who is not routinely followed by [facility] cardiology. Past medical history includes hypertension, systolic CHF, chronic bronchitis, obstructive sleep apnea with CPAP, and severe morbid obesity. Patient presented to [facility] ER on 02/13 with complaints of shortness of breath , and was noted to have oxygen saturation level of 88% with improvement after initiation of supplemental O2. He reported he had been previously evaluated at [facility] emergency room on 02/12, was diagnosed with pneumonia, prescribed azithromycin, and was discharged home. He continued to feel short of breath, had excessive coughing and developed some abdominal pain and back pain with deep breathing, and this prompted his presentation to [facility]. Chest x-ray showed scattered haziness bilaterally and more dominant and right lung, and this was suggestive of atelectasis. X-ray also revealed possible mild pulmonary edema and/or underlying pneumonia. Normal troponin level is 0.050 and BNP 243. He denied recent or current orthopnea, PND, or increase in LE edema. Chest CT obtained and was a technically difficult study due to patient's body habitus, but no evidence of pulmonary embolus appreciated. Patient was admitted per hospital medicine for further observation and treatment. Echocardiogram on 02/13 with moderate LVH and severely reduced LV ejection fraction at 15%, moderate to severe TR with a PA pressure of 62 mmHg. Patient has been evaluated per sleep medicine and CPAP therapy reintroduced with favorable improvement. Cardiology has been consulted for evaluation of congestive heart failure. FEBRUARY 18, 2017: Mr. Guevara is awake and alert this morning, and he is no acute distress. Reports he did not sleep very well last night due to not having difficulty with CPAP machine. Denies worsening of shortness of breath, and feels it may be "a little better today." Continues to have productive cough. Sputum culture negative. ARB added to medication regimen yesterday. Blood pressure has tolerated well, SBP averaging 120-135 mmHg. Tachycardia improved this morning with pulse rate 80s-90s. BMP results pending. Exam (Progress Note) - Constitutional Vitals: Period Temp Pulse Resp BP Sys/Anderson Pulse Ox Last 24 Hr 97.0 F-98.4 F 88-150 20-24 93-133/42-90 96-100 Exam: General: Present: No Apparent Distress, Other (severely, morbidly obese) HEENT: Present: PERRL, Normocephaly, Mucus Membranes Moist. Absent: Jaundice Neck: Present: Supple Neck, Midline Trachea, Other (unable to adequately assess JVD due to body habitus) Cardiac: Present: Reg Rate and Rhythm, No Murmur, Tachycardia. Absent: Bradycardia Lungs: Present: Normal Exam, Clear Ascult./Percussion. No Wheeze, Rales, Rhonchi Neuro: Present: Grossly Intact. Absent: Numbness, Weakness, Resting Tremor, Essential Tremor Abdomen: Present: Soft, Active Bowel Sounds, Other (morbidly obese). Absent: Tender, Firm Skin: Present: Clear. Absent: Bruising Extremities: Present: No Clubbing, No Cyanosis, Normal Upper Extr. Pulses (2-3+ bilaterally), Normal Lower Extr. Pulses (1-2+ bilaterally), Edema (BLE's, some improvement today), Other (chronic venous stasis changes to BLE's.) Result/EKG - Labs CBC & BMP: 02/18/17 03:07 02/18/17 04:00 Lab Results: I have reviewed the past 24 hour labs Labs: Laboratory Results - last 24 hr 02/18/17 03:07 WBC 10.0 RBC 4.99 Hgb 10.9 L Hct 36.1 L MCV 72.3 L MCH 22 L MCHC 30.2 L RDW 16.3 Plt Count 283 MPV 11.1 Neut % (Auto) 69.8 Lymph % (Auto) 18.1 L [place] % (Auto) 9.0 Eos % (Auto) 1.9 Baso % (Auto) 0.3 Neut # (Auto) 7.0 Lymph # (Auto) 1.8 [place] # (Auto) 0.9 H Eos # (Auto) 0.2 Baso # (Auto) 0.0 Immature Gran % 0.9 Nucleated RBC % 0.0 Immature Gran # 0.09 Nucleated RBCs # 0.00 - EKG EKG results: interpreted by me, no acute changes EKG shows: tachycardia Specialty Discharge - Follow Up or Referrals I, Avery Muse MD, personally performed the services described in this documentation, ascribed by Sivan Carroll RN in my presence, and it is both accurate and complete .
[2017-02-18] MEDS: SPIRONOLACTONE 25 MG TABLET PO SCH (11:53)
--- NOTE | 2017-02-18 12:12 | Sleep Medicine Progress Note ---
Assessment and Plan (1) Obstructive sleep apnea on CPAP Status: Chronic Assessment and plan: Patient is to be set up with a CPAP machine at discharge from [facility]. We will schedule for follow-up in the sleep clinic. He will need be set on 10 cm of CPAP. Current Visit: Yes Sleep Medicine Subjective Interval history: Patient continues to sleep well with CPAP at night. [facility] does have a used machine for him. He may only need to purchase supplies. This can be set up for him at discharge. I have spoken with Mignon Shah regarding this and given her the contact information for your drugs DME. Exam (Progress Note) - Constitutional Vitals: Period Temp Pulse Resp BP Sys/Anderson Pulse Ox Last 24 Hr 97.0 F-98.4 F 80-141 18-24 78-133/40-90 96-100 Exam: He is alert and responsive in no acute distress. Neck is supple but it feels though he has some goiter. Chest with good air movement no significant wheeze or rhonchi. Cardiac exam reveals a regular rhythm without murmur or gallop. Abdomen obese nontender without palpable hepatosplenomegaly or mass. Extremities with chronic venous insufficiency changes. Results - Labs CBC & BMP: 02/18/17 03:07 02/18/17 04:00 Lab Results: I have reviewed the past 24 hour labs Specialty Discharge - Follow Up or Referrals
[2017-02-19] MEDS: ALBUTEROL 2.5 MG/3 ML NEB RESP TX SCH ×3 (06:54→19:35)
[2017-02-19 06:57] LABS: Basophils % 0.2 % (0.0-0.8); Eosinophils # 0.2 10*3/uL (0.0-0.87); Eosinophils % 1.9 % (0.00-10.9); Hemoglobin 10.4 GM/DL (14.0-18.0); Immature Granulocytes % 0.8 %; Immature Granulocytes Absolute 0.07 #; Lymphocytes # 1.5 10*3/uL (1.4-4.0); Lymphocytes % 16.3 % (21.2-54.2); Mean Corpuscular HGB Conc 30.6 GM/DL (32-36); Mean Corpuscular Hemoglobin 22 PG (27-34); Mean Corpuscular Volume 71.1 FL (87-102); Mean Platelet Volume 10.9 FL (9.6-12.0); Monocytes # 0.7 10*3/uL (0.11-0.8); Monocytes % 7.5 % (1.7-12.7); Neutrophils # 6.8 10*3/uL (1.4-7.4); Neutrophils % 73.3 % (38.7-73.9); Platelet Count 280 T/CUMM (130-400); Red Blood Count 4.78 MC/CUMM (3.8-5.5); Red Cell Distribution Width 16.3 % (9.3-17.3); White Blood Count 9.3 T/CUMM (4-12)
[2017-02-19 07:27] LABS: Calcium 8.3 MG/DL (8.5-10.1); Magnesium 2.4 MG/DL (1.8-2.4); Osmolality,Calculated 277.5 MOS/KG (273-304)
[2017-02-19] MEDS ORDERED: MOISTURIZING CREAM (EUCERIN) 113 GM JAR TOP PRN (08:03)
--- NOTE | 2017-02-19 08:05 | Hospitalist Progress Note ---
Hospitalist: Subjective Interval history: Bm x 2 02/18. No fever. Still feels HINES. He has diuresed well yesterday. States he feels a little dizzy today and BP was slightly low. No nausea or vomiting. Tolerating po. Slept with CPAP overnight Exam - Constitutional Vitals: Period Temp Pulse Resp BP Sys/Anderson Pulse Ox Last 24 Hr 96.5 F-98.7 F 80-113 18-21 78-107/40-63 93-99 Exam: Morbidly obese, NAD RRR no M CTAB nonlabored, better aeration throughout Soft, NT, ND, +BS difficult to assess for HSM or masses given body habitus Warm no c/c/ trace LE edema, Xerosis; ARNOLD - Expanded ENT Exam Mouth exam: Present: moist Results - Labs CBC & BMP: 02/19/17 06:17 02/19/17 06:17 Labs: Blood culture- negative a 5 days. Sputum culture negative. - Impressions (1) Community acquired pneumonia bilateral possibly due to GPC, GNR, or atypicals Status: Acute Assessment and plan: Currently the patient is on Levaquin 500 mg po daily (day 02/13). Cont bronchodilators, Mucinex and pulmonary toileting with PEP/ IPPB therapy. oxygen as needed. Blood cultures 02/13- NGTDx x 5 days. 02/15 Sputum culture no growth. pulm following. Current Visit: Yes (2) Elevated troponin Status: Acute Assessment and plan: This could be secondary to strain given the suggestion of congestive heart failure. Cards following. Recs reviewed. Outpatient cath. Pt is to schedule follow with his rn cardiovascular icu in [place] in approximately 2 weeks. Please arrange at discharge. Current Visit: Yes (3) CHF (congestive heart failure) systolic EF 15%, cor pulmonale Status: Chronic Assessment and plan: Echocardiogram reviewed. Awaiting final cards recs. Serial cardiac markers. On Bidil, Coreg and Torsemide (dose increased). On Diamox per pulm and received Lasix IV x 1 02/18. Will need to hold BP meds and diuretics pending BP results. Watch output and creatinine. Check BNP Current Visit: Yes Qualifiers: Congestive heart failure type: systolic Congestive heart failure chronicity : chronic Qualified Code(s): I50.22 - Chronic systolic (congestive) heart failure (4) Chronic hypoventilation syndrome - mgt per pulm. ABG reviewed (5) Obstructive sleep apnea with severe pulmonary hypertension - CPAP hs and may need to add Revatio. Will defer this to pulm - CT chest with PE protocol negative for PE but showed bilateral pneumonia - Pulmonology and Sleep medicine following (6) Morbid obesity - weight loss and physical/dietary modifications recommended. DVT prophylaxis D/W pt. Discharge pending pulm recs. Cards has signed off. Hopefully dc soon. I will be away several days. One of my associates will follow in my absence. Specialty Discharge - Follow Up or Referrals
--- NOTE | 2017-02-19 09:10 | Cardiology Progress Note ---
Assessment and Plan (1) CHF (congestive heart failure) Status: Chronic Assessment and plan: 26-year-old severely, morbidly obese AA male with past medical history of hypertension, systolic CHF, hypoventilation syndrome, and obstructive sleep apnea. He is now admitted for treatment of pneumonia. Echocardiogram this admission with severely reduced LV function, LV ejection fraction is estimated at 15%, and severe pulmonary hypertension with a PA pressure of 62 mmHg. INITIAL CONSULT FEBRUARY 15, 2017: ASSESSMENT/PLAN: 1. 26-year-old morbidly obese bpm with reported long history of cardiomyopathy/ heart failure followed by cardiology in [facility], with untreated ELINA, now being treated with pneumonia (admitted at [place] for less than 2 days, and came here when he did not improve), with medical noncompliance (missed several days prior to admission), with severe cardiomyopathy and at least moderate LVH ( EF 15%) associated with significant pulmonary hypertension (PA P 62 mmHg plus RAP) 2. Add nitrates to hydralazine 3. Continue Coreg and diuresis 4. Follow-up electrolytes and renal function 5. Consult sleep medicine to see if adjustments can be made "my machine is not working right", and help him with compliance with CPAP. 6. He drinks quite a bit of juice; discussed avoiding all calorie drinks; he only drink eats once or twice a daywe discussed eating 3-4 times per day to help him lose weight. We briefly discussed bariatric intervention, but I believe he is not stable enough for that at this time. UPDATE FEBRUARY 16, 2017: ASSESSMENT/PLAN: 1. Hemodynamically stable, tolerating addition of isosorbide 2. Sleep medicine is assessing to try to help treat his ELINA 3. Increase Coreg to 37.5 mg twice daily which will be maximum dosage for him 4. Continue hydralazine and diuresis 5. Check follow-up renal function and electrolytes 6. I have size again need for significant weight loss (drinking cranberry juice ) UPDATE FEBRUARY 17, 2017: ASSESSMENT/PLAN: 1. He is feeling better today "I have not slept a good a long time"; it is his understanding that he slept for 7 hours with the CPAP on 2. We discussed again his absolute need to lose some weight in the long run. 3. Tolerating increase Coreg 4. Start low-dose ARB valsartan 40 minutes twice daily 5. Check EKG given episodes of tachycardia 6. Tolerating hydralazine/nitrates 7. Change Demadex to 40 mg daily with plans to increase to 80 mg daily day if needed UPDATE FEBRUARY 18, 2017: ASSESSMENT/PLAN: 1. Dyspnea is unchanged today, but he did tolerate CPAP again last night 2. He is tolerating increase Coreg and valsartan as well as nitrates/isosorbide 3. Increase Demadex to 80 mg daily, and spironolactone 25 g daily; his renal function electrolytes are unremarkable. 4. Discussed his need to avoid sugar/simple carbohydrates Update February 19, 2017: Assessment/plan: 1. Stable dyspnea on exertion, again tolerated CPAP well last night 2. He is on excellent medical therapy for his severe presumed nonischemic cardiomyopathy (possibly related to untreated hypertension given his moderate LVH, may have been worsened by his ELINA) 3. We discussed the need to continue avoiding simple carbohydrates, and using his CPAP regularly. 4. He is to schedule follow with his telegraphic typewriter mechanic in [place] in approximately 2 weeks for follow-up. 5. Really nothing else to offer; we will sign off; please call if needed prior to discharge per 6. I have ordered the patient be weighed today so we can evaluate how much she is diuresed Current Visit: Yes Qualifiers: Congestive heart failure type: systolic Congestive heart failure chronicity : chronic Qualified Code(s): I50.22 - Chronic systolic (congestive) heart failure (2) Community acquired pneumonia Status: Acute Current Visit: Yes (3) Troponin I above reference range Status: Acute Current Visit: Yes (4) Obstructive sleep apnea on CPAP Status: Chronic Current Visit: Yes (5) Hypertension Status: Chronic Current Visit: Yes (6) Morbid (severe) obesity with alveolar hypoventilation Status: Chronic Current Visit: Yes Cardiology - PN: Subj Interval history: He reports no change in his mild baseline shortness of breath. He has no new complaints. He is having no chest pain or dizziness. We again discussed his need for a no sugar diet and no sweetened drinks. He slept on CPAP again and seemed to tolerate it fairly well. Exam (Progress Note) - Constitutional Vitals: Period Temp Pulse Resp BP Sys/Anderson Pulse Ox Last 24 Hr 96.5 F-98.7 F 80-113 18-21 78-107/40-63 93-99 General appearance: no acute distress, morbidly obese - Head Head exam: Present: normal inspection, normocephalic, atraumatic - Neck Neck exam: Present: normal inspection - Respiratory Respiratory exam: Present: decreased breath sounds. Absent: stridor, wheezes - Cardiovascular Cardiovascular exam: Present: regular rate and rhythm. Absent: diastolic murmur , systolic murmur - GI/Abdominal GI/Abdominal exam: Present: soft. Absent: tenderness - Extremities Exam Extremities exam: Present: edema (4+ brawny) - Neurological Exam Neurological exam: Present: alert, oriented X3 - Psychiatric Psychiatric exam: Present: normal affect Result/EKG - Labs CBC & BMP: 02/19/17 06:17 02/19/17 06:17 Labs: Laboratory Results - last 24 hr 02/19/17 02/19/17 06:17 06:17 WBC 9.3 RBC 4.78 Hgb 10.4 L Hct 34.0 L MCV 71.1 L MCH 22 L MCHC 30.6 L RDW 16.3 Plt Count 280 MPV 10.9 Neut % (Auto) 73.3 Lymph % (Auto) 16.3 L [place] % (Auto) 7.5 Eos % (Auto) 1.9 Baso % (Auto) 0.2 Neut # (Auto) 6.8 Lymph # (Auto) 1.5 [place] # (Auto) 0.7 Eos # (Auto) 0.2 Baso # (Auto) 0.0 Immature Gran % 0.8 Nucleated RBC % 0.0 Immature Gran # 0.07 Nucleated RBCs # 0.00 Sodium 139 Potassium 4.0 Chloride 104 Carbon Dioxide 27 Anion Gap 12.0 BUN 14 Creatinine 1.00 GFR Calculation 237 BUN/Creatinine Ratio 14.00 Glucose 94 Calculated Osmolality 277.5 Calcium 8.3 L Magnesium 2.4 Specialty Discharge - Follow Up or Referrals
[2017-02-19] MEDS: TORSEMIDE 20 MG TABLET PO SCH (09:22)
[2017-02-19] MEDS: SPIRONOLACTONE 25 MG TABLET PO SCH (09:22)
[2017-02-19] MEDS: LEVOFLOXACIN 500 MG TABLET PO SCH (09:22)
[2017-02-19] MEDS: DIGOXIN 0.125 MG TABLET PO SCH (09:22)
[2017-02-19] MEDS: VALSARTAN 80 MG TABLET PO SCH (09:22)
[2017-02-19] MEDS: hydrALAZINE 25 MG TABLET PO SCH (09:22)
[2017-02-19] MEDS: ISOSORBIDE DINITRATE 20 MG TABLET PO SCH (09:22)
[2017-02-19] MEDS: acetaZOLAMIDE 250 MG TABLET PO SCH ×2 (09:22→20:39)
[2017-02-19] MEDS: CARVEDILOL 25 MG TABLET PO SCH ×2 (09:22→20:40)
[2017-02-19] MEDS: ENOXAPARIN 40 MG/0.4 ML SYRINGE SUBCUT SCH (09:22)
[2017-02-19] MEDS: ACETAMINOPHEN 325 MG TABLET PO PRN (15:09)
--- NOTE | 2017-02-19 19:14 | Pulmonology Progress Note ---
Pulmonary - PN: Subj Interval history: 26-year-old male with morbid obesity admitted for dyspnea thought to be due to pneumonia in addition to CHF. Overnight patient admits to continued dyspnea with minimal exertion, but is overall feeling slightly better regarding his energy level. He continues to have a cough with sputum production that is light yellow in color. He denies hemoptysis. No fevers but he has felt chills. No other new complaints. Exam (Progress Note) - Constitutional Vitals: Period Temp Pulse Resp BP Sys/Anderson Pulse Ox Last 24 Hr 96.5 F-98.7 F 73-112 18-21 93-107/46-63 93-99 General appearance: morbidly obese - Head Head exam: Present: normal inspection - Eye Eye exam: Present: EOMI Pupils: Present: - Respiratory Respiratory exam: Present: clear to auscultation bilaterally. Absent: rales, rhonchi, wheezes - Cardiovascular Cardiovascular exam: Present: regular rate and rhythm - GI/Abdominal GI/Abdominal exam: Present: normal bowel sounds, soft. Absent: tenderness - Extremities Exam Extremities exam: Present: edema - Neurological Exam Neurological exam: Present: alert, oriented X3 - Skin Skin exam: Present: warm, dry Results - Labs CBC & BMP: 02/19/17 06:17 02/19/17 06:17 Assessment and Plan (1) Community acquired pneumonia Status: Acute Assessment and plan: Evidence of slight clinical improvement. Continue current therapy and will evaluate with repeat chest x-ray in the morning. Current Visit: Yes (2) CHF (congestive heart failure) Status: Chronic Current Visit: Yes Qualifiers: Congestive heart failure type: systolic Congestive heart failure chronicity : chronic Qualified Code(s): I50.22 - Chronic systolic (congestive) heart failure (3) Morbid (severe) obesity with alveolar hypoventilation Status: Chronic Current Visit: Yes (4) Obstructive sleep apnea on CPAP Status: Chronic Current Visit: Yes Specialty Discharge - Follow Up or Referrals
[2017-02-20] MEDS: ALBUTEROL 2.5 MG/3 ML NEB RESP TX SCH ×5 (01:24→19:35)
[2017-02-20 06:46] LABS: Basophils % 0.2 % (0.0-0.8); Eosinophils # 0.2 10*3/uL (0.0-0.87); Eosinophils % 1.8 % (0.00-10.9); Hematocrit 36.1 VOL% (42.0-52.0); Immature Granulocytes % 0.9 %; Immature Granulocytes Absolute 0.08 #; Lymphocytes # 1.8 10*3/uL (1.4-4.0); Lymphocytes % 19.1 % (21.2-54.2); Mean Corpuscular HGB Conc 30.5 GM/DL (32-36); Mean Corpuscular Hemoglobin 22 PG (27-34); Mean Corpuscular Volume 71.3 FL (87-102); Mean Platelet Volume 10.8 FL (9.6-12.0); Monocytes # 0.7 10*3/uL (0.11-0.8); Monocytes % 7.5 % (1.7-12.7); Neutrophils # 6.6 10*3/uL (1.4-7.4); Neutrophils % 70.5 % (38.7-73.9); Platelet Count 313 T/CUMM (130-400); Red Blood Count 5.06 MC/CUMM (3.8-5.5); Red Cell Distribution Width 16.6 % (9.3-17.3); White Blood Count 9.4 T/CUMM (4-12)
[2017-02-20 07:22] LABS: Calcium 8.8 MG/DL (8.5-10.1); Osmolality,Calculated 282.3 MOS/KG (273-304); Phosphorous 4.6 MG/DL (2.5-4.9); Potassium 4.1 MMOL/L (3.5-5.1)
[2017-02-20] MEDS: VALSARTAN 80 MG TABLET PO SCH ×2 (08:43→21:03)
[2017-02-20] MEDS: ISOSORBIDE DINITRATE 20 MG TABLET PO SCH ×3 (08:43→21:03)
[2017-02-20] MEDS: DIGOXIN 0.125 MG TABLET PO SCH (08:45)
[2017-02-20] MEDS: acetaZOLAMIDE 250 MG TABLET PO SCH ×2 (08:45→21:04)
[2017-02-20] MEDS: CARVEDILOL 25 MG TABLET PO SCH ×2 (08:45→21:02)
[2017-02-20] MEDS: SPIRONOLACTONE 25 MG TABLET PO SCH (08:46)
[2017-02-20] MEDS: TORSEMIDE 20 MG TABLET PO SCH (08:46)
[2017-02-20] MEDS: ENOXAPARIN 40 MG/0.4 ML SYRINGE SUBCUT SCH (08:46)
[2017-02-20] MEDS: hydrALAZINE 25 MG TABLET PO SCH ×2 (08:46→21:12)
[2017-02-20] MEDS: LEVOFLOXACIN 500 MG TABLET PO SCH (08:47)
--- NOTE | 2017-02-20 09:23 | Hospitalist Progress Note ---
Assessment and Plan (1) Community acquired pneumonia Status: Acute Assessment and plan: The patient is admitted to the hospital with respiratory failure which is multifactorial and includes lung infection. The patient continues on IV antibiotics and inhaled beta agonist nebulized breathing therapies. The patient 's pneumonia is complicated by severe systolic cardiomyopathy with elevated pulmonary artery pressure. We will recheck electrolytes tomorrow. Current Visit: Yes (2) CHF (congestive heart failure) Status: Chronic Current Visit: Yes Qualifiers: Congestive heart failure type: systolic Congestive heart failure chronicity : chronic Qualified Code(s): I50.22 - Chronic systolic (congestive) heart failure (3) Morbid (severe) obesity with alveolar hypoventilation Status: Chronic Current Visit: Yes Hospitalist: Subjective Interval history: The patient is resting quietly in bed today. He states that shortness of breath continues but is getting a little bit better each day. Blood pressure is marginal but the patient does not have orthostasis symptoms. The patient continues to have some cough productive of keller colored secretions. Exam - Constitutional Vitals: Period Temp Pulse Resp BP Sys/Anderson Pulse Ox Last 24 Hr 96.7 F-98.4 F 73-112 15-19 93-111/44-58 89-99 Exam: Constitutional System: Mild distress. No tremulousness. Massive obesity Head: Normocephalic, atraumatic. Ears, Nose and Throat System: No evidence of Otitis or Mastoiditis. No epistaxis or discharge Eyes System: Pupils equal, round, and reactive. Extraocular muscles intact. Neck: Supple, without adenopathy, No jugular venous distention. No thyromegaly , neck mass, or prior surgery apparent. Respiratory System: Chest few rhonchi to auscultation; small lung volumes. Cardiovascular System: Heart with regular rate and rhythm. No murmur. GI System: Abdomen soft, massively obese, nontender. Normo active bowel sounds present. Musculoskeletal System: limbs with 2+ brawny chronic pedal edema. Full distal pulses. Neurological System: No discernable sensory deficit. No aphasia Psychiatric System: Conversation is rational - Expanded ENT Exam Mouth exam: Present: moist Results - Labs CBC & BMP: 02/20/17 06:15 02/20/17 06:15 Lab Results: I have reviewed the past 24 hour labs Specialty Discharge - Follow Up or Referrals
--- NOTE | 2017-02-20 09:32 | XRay Report ---
XR chest 1V portable Indication: Dyspnea Comparison: 13 Feb 2017 Findings: The heart and mediastinum are stable in size and configuration. The pulmonary vascularity is slightly increased with bilateral increased interstitial lung density. No other lung infiltrates, effusions, pneumothorax or other abnormality is demonstrated. Impression: Findings suggest mild cardiac decompensation. PROCEDURE INTERPRETED AT [facility] DEPARTMENT OF RADIOLOGY Final Report Signed by: Dr. Salazar Gentile
[2017-02-21] MEDS: ALBUTEROL 2.5 MG/3 ML NEB RESP TX SCH ×4 (01:06→19:49)
[2017-02-21 07:26] LABS: Basophils % 0.3 % (0.0-0.8); Eosinophils # 0.2 10*3/uL (0.0-0.87); Eosinophils % 1.7 % (0.00-10.9); Hematocrit 33.8 VOL% (42.0-52.0); Hemoglobin 10.4 GM/DL (14.0-18.0); Immature Granulocytes % 0.9 %; Immature Granulocytes Absolute 0.09 #; Lymphocytes # 1.8 10*3/uL (1.4-4.0); Lymphocytes % 18.2 % (21.2-54.2); Mean Corpuscular HGB Conc 30.8 GM/DL (32-36); Mean Corpuscular Hemoglobin 22 PG (27-34); Mean Corpuscular Volume 70.4 FL (87-102); Mean Platelet Volume 10.8 FL (9.6-12.0); Monocytes # 0.8 10*3/uL (0.11-0.8); Monocytes % 7.9 % (1.7-12.7); Neutrophils # 6.9 10*3/uL (1.4-7.4); Platelet Count 299 T/CUMM (130-400); Red Cell Distribution Width 16.5 % (9.3-17.3); White Blood Count 9.8 T/CUMM (4-12)
--- NOTE | 2017-02-21 07:28 | Cardiology Progress Note ---
Cardiology - PN: Subj Interval history: Cardiology note Unfortunate 26-year-old man with end-stage cardiomyopathy, untreated sleep apnea and morbid obesity. The patient is 6 feet tall and weighs 299 kg O2 sat 98% on 2 L Blood pressure 104/60 Decreased breath sounds with few basilar crackles Distant heart tones cannot hear any murmur Morbid obesity Lab data White count 9.4 hemoglobin 11.0 hematocrit 36.1 Sodium 141 potassium 4.1 chloride 105 CO2 28 BUN 17 creatinine 1.20 Impression End-stage cardia myopathy ejection fraction 15% by recent echo and severe TR, PA pressure 62 Morbid obesity 6 feet tall, 299 kg Untreated obstructive sleep apnea Plan 37.5 mg twice daily Coreg 20 mg 3 times daily isosorbide 25 mg Spironolactone 40 mg twice valsartan daily 25 mg hydralazine twice daily 80 mg torsemide daily CPAP BMP a.m. Exam (Progress Note) - Constitutional Vitals: Period Temp Pulse Resp BP Sys/Anderson Pulse Ox Last 24 Hr 97 F-98.4 F 68-98 15-36 97-112/49-96 94-98 Result/EKG - Labs CBC & BMP: 02/21/17 05:53 02/20/17 06:15 Labs: Laboratory Results - last 24 hr 02/20/17 06:15 B-Natriuretic Peptide 343 H Specialty Discharge - Follow Up or Referrals
--- NOTE | 2017-02-21 08:40 | Pulmonology Progress Note ---
Pulmonary - PN: Subj Interval history: This 26-year-old white male has severe obstructive sleep apnea and obesity hypoventilation syndrome. His PCO2 yesterday was 50 on 3 L of nasal oxygen with a PO2 of 108. We need to reduce his oxygen to 1 L during the day and he may not need any at all during the daytime. Just needs an oxygen saturation of 88% or higher. He must be compliant with his CPAP at night. Appreciate Dr. Pina's help in getting his equipment updated. He of course also has severe cardiomyopathy. Patient used CPAP night before last but a little less so last night. He said that there was no water put in the humidifier. This morning he was asleep where he has nasal oxygen. He still short of breath and has a good bit of leg edema. I am going to give him some extra IV Lasix. It will be a while before he can mobilize enough edema. I have started him on low-dose Diamox. We need to watch for acidosis. 02/21/17 patient is using his CPAP at night. He still has some cough and sputum production and has to take the mask off from time to time. Oxygen saturation is acceptable during the daytime off oxygen. The bed scales have apparently been re-zeroed and he is now listed as weighing 660 pounds rather than 560 pounds. In any rate he needs substantial weight loss over time obviously. He is still having some coughing and wheezing and his bronchopneumonia has not resolved as yet. Also being treated for congestive heart failure with an ejection fraction 15% Exam (Progress Note) - Constitutional Vitals: Period Temp Pulse Resp BP Sys/Anderson Pulse Ox Last 24 Hr 97 F-98.4 F 68-98 15-36 97-112/47-96 94-99 Exam: Patient is alert, on nasal oxygen. Vital signs normal other than his weight of approximately 660 pounds. His pupils were reactive neck is supple. Chest shows some expiratory rhonchi bilaterally. Heart normal rate and rhythm no murmurs. Abdomen grand obese. Extremities he has some chronic nonpitting edema in his lower legs. Calves nontender. Results - Labs CBC & BMP: 02/21/17 05:53 02/20/17 06:15 Lab Results: I have reviewed the past 24 hour labs Assessment and Plan (1) Community acquired pneumonia Status: Acute Assessment and plan: With the yellow sputum production it is likely that he has bronchopneumonia. Agree with empiric antibiotics. White blood count only 10,000. Patient has not had fever. 02/17/2017 he is being empirically treated for pneumonia. Probably has a patchy infiltrate in the right lung. Had change in his sputum color to yellow. Would treat him for about a week with antibiotics. 02/18/2017 continuing empiric antibiotics. He is on Levaquin. Sputum culture shows normal kathie. Blood cultures negative 2. 02/21/2017 continuing antibiotics. Cultures have been negative. Current Visit: Yes (2) CHF (congestive heart failure) Status: Chronic Assessment and plan: BNP only slightly elevated to 60. Ejection fraction is 15%. He has some chronic leg edema it has not gotten worse lately. Continue cautious diuresis. 02/17/2017 severe cardiomyopathy. I think his fluid status is about right at present. 02/18/2017 severe cardiomyopathy. Still has marked peripheral edema. Bumping with Lasix 02/21/2017 on multiple medications followed by cardiology. Current Visit: Yes Qualifiers: Congestive heart failure type: systolic Congestive heart failure chronicity : chronic Qualified Code(s): I50.22 - Chronic systolic (congestive) heart failure (3) Morbid (severe) obesity with alveolar hypoventilation Status: Chronic Assessment and plan: I suspect he has obesity hypoventilation syndrome. We need ABGs. May need to use Diamox on him. 02/17/2017 long-term weight loss is very important. I am adding a little bit of Diamox due to the elevated PCO2. Need to watch his pH. Want to get his bicarb level down to about 23 or 24. 02/18/2017 bicarb level is 28. Trying to diurese him. Weight is stable. Firmly reminded patient of the importance of using the CPAP every night and learning how to take care of his own equipment when he gets it. 02/21/2017 continuing with CPAP at night. Continue with diuretics. Not requiring oxygen during the daytime. He is on low-dose Diamox. Current Visit: Yes (4) Obstructive sleep apnea on CPAP Status: Chronic Assessment and plan: Patient has been noncompliant with his CPAP. Will get sleep services to sleep. He apparently does not like the way his nasal pillars fit. 02/17/2017 compliant with his CPAP last night. Will be very important going forward. 02/18/2017 arrangements being made for new equipment at home. Appreciate Dr. Pina's help. 02/21/2017 using CPAP more now. Arranging for home unit. Current Visit: Yes Specialty Discharge - Follow Up or Referrals
[2017-02-21] MEDS: hydrALAZINE 25 MG TABLET PO SCH ×2 (09:51→21:36)
[2017-02-21] MEDS: VALSARTAN 80 MG TABLET PO SCH ×3 (09:52→21:41)
[2017-02-21] MEDS: ENOXAPARIN 40 MG/0.4 ML SYRINGE SUBCUT SCH (09:58)
[2017-02-21] MEDS: CARVEDILOL 25 MG TABLET PO SCH ×2 (10:00→21:35)
[2017-02-21] MEDS: TORSEMIDE 20 MG TABLET PO SCH (10:01)
[2017-02-21] MEDS: acetaZOLAMIDE 250 MG TABLET PO SCH ×3 (10:02→21:41)
[2017-02-21] MEDS: SPIRONOLACTONE 25 MG TABLET PO SCH (10:03)
[2017-02-21] MEDS: LEVOFLOXACIN 500 MG TABLET PO SCH (10:04)
[2017-02-21] MEDS: DIGOXIN 0.125 MG TABLET PO SCH (10:06)
[2017-02-21] MEDS: ISOSORBIDE DINITRATE 20 MG TABLET PO SCH ×3 (10:07→21:35)
--- NOTE | 2017-02-21 12:07 | Hospitalist Progress Note ---
Assessment and Plan (1) Community acquired pneumonia Status: Acute Assessment and plan: The patient is admitted to the hospital with respiratory failure which is multifactorial and includes lung infection. The patient continues on IV antibiotics and inhaled beta agonist nebulized breathing therapies. The patient 's pneumonia is complicated by severe systolic cardiomyopathy with elevated pulmonary artery pressure. We will recheck electrolytes tomorrow. I coordinated care with Dr. Luna today. Current Visit: Yes (2) CHF (congestive heart failure) Status: Chronic Current Visit: Yes Qualifiers: Congestive heart failure type: systolic Congestive heart failure chronicity : chronic Qualified Code(s): I50.22 - Chronic systolic (congestive) heart failure (3) Morbid (severe) obesity with alveolar hypoventilation Status: Chronic Current Visit: Yes Hospitalist: Subjective Interval history: Mr. Maya has no new symptoms today. The patient continues with coughing and had a difficult spell with shortness of breath due to coughing earlier this morning. I coordinate care with Dr. Luna. We are hoping that we can improve the patient's lung infection enough for him to go home later this week. Exam - Constitutional Vitals: Period Temp Pulse Resp BP Sys/Anderson Pulse Ox Last 24 Hr 97 F-98.4 F 68-100 15-36 101-114/47-96 94-99 Exam: Constitutional System: Mild distress. No tremulousness. Massive obesity Head: Normocephalic, atraumatic. Ears, Nose and Throat System: No evidence of Otitis or Mastoiditis. No epistaxis or discharge Eyes System: Pupils equal, round, and reactive. Extraocular muscles intact. Neck: Supple, without adenopathy, No jugular venous distention. No thyromegaly , neck mass, or prior surgery apparent. Respiratory System: Chest few rhonchi to auscultation; small lung volumes. Cardiovascular System: Heart with regular rate and rhythm. No murmur. GI System: Abdomen soft, massively obese, nontender. Normo active bowel sounds present. Musculoskeletal System: limbs with 2+ brawny chronic pedal edema. Full distal pulses. Neurological System: No discernable sensory deficit. No aphasia Psychiatric System: Conversation is rational - Expanded ENT Exam Mouth exam: Present: moist Results - Labs CBC & BMP: 02/21/17 05:53 02/20/17 06:15 Lab Results: I have reviewed the past 24 hour labs Specialty Discharge - Follow Up or Referrals
[2017-02-22] MEDS: ALBUTEROL 2.5 MG/3 ML NEB RESP TX SCH ×4 (01:56→20:43)
[2017-02-22 04:27] LABS: Calcium 8.6 MG/DL (8.5-10.1); Magnesium 2.5 MG/DL (1.8-2.4); Osmolality,Calculated 277.5 MOS/KG (273-304); Potassium 3.9 MMOL/L (3.5-5.1)
--- NOTE | 2017-02-22 08:08 | Pulmonology Progress Note ---
Pulmonary - PN: Subj Interval history: This 26-year-old white male has severe obstructive sleep apnea and obesity hypoventilation syndrome. His PCO2 yesterday was 50 on 3 L of nasal oxygen with a PO2 of 108. We need to reduce his oxygen to 1 L during the day and he may not need any at all during the daytime. Just needs an oxygen saturation of 88% or higher. He must be compliant with his CPAP at night. Appreciate Dr. Pina's help in getting his equipment updated. He of course also has severe cardiomyopathy. Patient used CPAP night before last but a little less so last night. He said that there was no water put in the humidifier. This morning he was asleep where he has nasal oxygen. He still short of breath and has a good bit of leg edema. I am going to give him some extra IV Lasix. It will be a while before he can mobilize enough edema. I have started him on low-dose Diamox. We need to watch for acidosis. 02/21/17 patient is using his CPAP at night. He still has some cough and sputum production and has to take the mask off from time to time. Oxygen saturation is acceptable during the daytime off oxygen. The bed scales have apparently been re-zeroed and he is now listed as weighing 660 pounds rather than 560 pounds. In any rate he needs substantial weight loss over time obviously. He is still having some coughing and wheezing and his bronchopneumonia has not resolved as yet. Also being treated for congestive heart failure with an ejection fraction 15% 02/22/2017 patient is doing better. Lungs sound better. Oxygen saturation on room air in mid 90s. I discussed with him the need for significant weight loss and suggested that he find a program for that perhaps at [facility]. We will ask the licensed master social worker to look into that. He is about back to his baseline status otherwise. Does need a functioning CPAP equipment at home, prior to discharge Exam (Progress Note) - Constitutional Vitals: Period Temp Pulse Resp BP Sys/Anderson Pulse Ox Last 24 Hr 97.2 F-98.8 F 78-135 18-98 95-124/54-84 95-100 Exam: Patient is alert, on nasal oxygen. Vital signs normal other than his weight that has apparently been difficult to quantify. His pupils are reactive, neck is supple. Chest sounds clear this morning. Heart normal rate and rhythm no murmurs. Abdomen grand obese. Extremities he has some chronic nonpitting edema in his lower legs. Calves nontender. Results - Labs CBC & BMP: 02/21/17 05:53 02/22/17 03:30 Lab Results: I have reviewed the past 24 hour labs Assessment and Plan (1) Community acquired pneumonia Status: Acute Assessment and plan: With the yellow sputum production it is likely that he has bronchopneumonia. Agree with empiric antibiotics. White blood count only 10,000. Patient has not had fever. 02/17/2017 he is being empirically treated for pneumonia. Probably has a patchy infiltrate in the right lung. Had change in his sputum color to yellow. Would treat him for about a week with antibiotics. 02/18/2017 continuing empiric antibiotics. He is on Levaquin. Sputum culture shows normal kathie. Blood cultures negative 2. 02/21/2017 continuing antibiotics. Cultures have been negative. 02/22/2017 pneumonia appears to be improved. Recheck chest x-ray tomorrow. Consider discharge when CPAP equipment is arranged at home. Current Visit: Yes (2) CHF (congestive heart failure) Status: Chronic Assessment and plan: BNP only slightly elevated to 60. Ejection fraction is 15%. He has some chronic leg edema it has not gotten worse lately. Continue cautious diuresis. 02/17/2017 severe cardiomyopathy. I think his fluid status is about right at present. 02/18/2017 severe cardiomyopathy. Still has marked peripheral edema. Bumping with Lasix 02/21/2017 on multiple medications followed by cardiology. 02/22/2017 this appears to be controlled fairly well with current medications. BNP remains slightly elevated at 300. Likely will stay elevated. Current Visit: Yes Qualifiers: Congestive heart failure type: systolic Congestive heart failure chronicity : chronic Qualified Code(s): I50.22 - Chronic systolic (congestive) heart failure (3) Morbid (severe) obesity with alveolar hypoventilation Status: Chronic Assessment and plan: I suspect he has obesity hypoventilation syndrome. We need ABGs. May need to use Diamox on him. 02/17/2017 long-term weight loss is very important. I am adding a little bit of Diamox due to the elevated PCO2. Need to watch his pH. Want to get his bicarb level down to about 23 or 24. 02/18/2017 bicarb level is 28. Trying to diurese him. Weight is stable. Firmly reminded patient of the importance of using the CPAP every night and learning how to take care of his own equipment when he gets it. 02/21/2017 continuing with CPAP at night. Continue with diuretics. Not requiring oxygen during the daytime. He is on low-dose Diamox. 02/22/2017 discussed with him getting into a bariatric program at a tertiary care location such as [facility]. Current Visit: Yes (4) Obstructive sleep apnea on CPAP Status: Chronic Assessment and plan: Patient has been noncompliant with his CPAP. Will get sleep services to sleep. He apparently does not like the way his nasal pillars fit. 02/17/2017 compliant with his CPAP last night. Will be very important going forward. 02/18/2017 arrangements being made for new equipment at home. Appreciate Dr. Pina's help. 02/21/2017 using CPAP more now. Arranging for home unit. 02/22/2017 appears to be using his CPAP at night. Definitely needs to continue this postdischarge. Current Visit: Yes Specialty Discharge - Follow Up or Referrals
[2017-02-22] MEDS: hydrALAZINE 25 MG TABLET PO SCH ×2 (08:59→20:30)
[2017-02-22] MEDS: VALSARTAN 80 MG TABLET PO SCH ×2 (09:00→20:29)
[2017-02-22] MEDS: ISOSORBIDE DINITRATE 20 MG TABLET PO SCH ×3 (09:01→20:29)
--- NOTE | 2017-02-22 09:13 | Cardiology Progress Note ---
I, Meliza Reveles RN, am scribing for, and in the presence of, Howard Worrell MD 09:13. Cardiology - PN: Subj Interval history: Cardiology note Flight Engineer: Dr. Jones in [place] Mr. Guevara is a 26-year-old male with end-stage cardiomyopathy, untreated sleep apnea, and morbid obesity. He reports his breathing is about the same. He is not currently wearing oxygen. He says he wore his CPAP to the first part of the night. He says he cannot sleep comfortably in the bed because it is too short, so he took off the CPAP and sat up in bed. O2 sats have been in the mid to upper 90s Blood pressure 95/63 Lab data: Sodium 139 potassium 3.9 chloride 105 CO2 26 BUN 15 creatinine 1.00 magnesium 2.5 BNP 311 Impression: End-stage cardiomyopathy, ejection fraction 15% by recent echo and severe TR, PA pressure 62 Morbid obesity 6 feet tall, 660 pounds Untreated obstructive sleep apnea Cardiology addendum Patient examined and chart reviewed. Discussed with nurse Meliza Reveles RN. Continue CPAP Weight reduction imperative. BMP in a.m. Exam (Progress Note) - Constitutional Vitals: Period Temp Pulse Resp BP Sys/Anderson Pulse Ox Last 24 Hr 97.2 F-98.8 F 78-135 18-98 95-124/54-84 95-100 General appearance: morbidly obese - Head Head exam: Absent: abrasion, hematoma - Eye Eye exam: Absent: periorbital swelling, laceration to eyelids - Respiratory Respiratory exam: Present: rales. Absent: accessory muscle use, chest wall tenderness - Cardiovascular Cardiovascular exam: Present: regular rate and rhythm - GI/Abdominal GI/Abdominal exam: Present: normal bowel sounds, soft. Absent: tenderness - Extremities Exam Extremities exam: Present: edema - Neurological Exam Neurological exam: Present: alert, oriented X3 - Psychiatric Psychiatric exam: Present: flat affect - Skin Skin exam: Present: warm, dry Result/EKG - Labs CBC & BMP: 02/21/17 05:53 02/22/17 03:30 Lab Results: I have reviewed the past 24 hour labs Labs: Laboratory Results - last 24 hr 02/22/17 02/22/17 03:30 03:30 Sodium 139 Potassium 3.9 Chloride 105 Carbon Dioxide 26 Anion Gap 11.9 BUN 15 Creatinine 1.00 GFR Calculation 245 BUN/Creatinine Ratio 15.00 Glucose 100 Calculated Osmolality 277.5 Calcium 8.6 Magnesium 2.5 H B-Natriuretic Peptide 311 H Specialty Discharge - Follow Up or Referrals Gm Sandhu Thomas, MD, personally performed the services described in this documentation, ascribed by Meliza Reveles RN in my presence, and it is both accurate and complete 913 .
[2017-02-22] MEDS: acetaZOLAMIDE 250 MG TABLET PO SCH ×2 (09:20→20:29)
[2017-02-22] MEDS: CARVEDILOL 25 MG TABLET PO SCH ×2 (09:20→20:29)
[2017-02-22] MEDS: TORSEMIDE 20 MG TABLET PO SCH (09:21)
[2017-02-22] MEDS: SPIRONOLACTONE 25 MG TABLET PO SCH (09:21)
[2017-02-22] MEDS: ENOXAPARIN 40 MG/0.4 ML SYRINGE SUBCUT SCH (09:23)
[2017-02-22] MEDS: LEVOFLOXACIN 500 MG TABLET PO SCH (09:23)
[2017-02-22] MEDS: DIGOXIN 0.125 MG TABLET PO SCH (09:26)
--- NOTE | 2017-02-22 13:19 | Hospitalist Progress Note ---
Assessment and Plan (1) Community acquired pneumonia Status: Acute Assessment and plan: The patient is admitted to the hospital with respiratory failure which is multifactorial and includes lung infection. The patient continues on IV antibiotics and inhaled beta agonist nebulized breathing therapies. The patient 's pneumonia is complicated by severe systolic cardiomyopathy with elevated pulmonary artery pressure. I anticipate discharge home tomorrow. I coordinated care with the correctional case manager today. Current Visit: Yes (2) CHF (congestive heart failure) Status: Chronic Current Visit: Yes Qualifiers: Congestive heart failure type: systolic Congestive heart failure chronicity : chronic Qualified Code(s): I50.22 - Chronic systolic (congestive) heart failure (3) Morbid (severe) obesity with alveolar hypoventilation Status: Chronic Current Visit: Yes Hospitalist: Subjective Interval history: The patient was admitted to the hospital with respiratory failure. The patient has combination of cardiomyopathy, pneumonia, and obesity hypoventilation syndrome. The patient's reversible factors have been optimized. We are preparing for discharge home tomorrow. Dr. Pina as arranged the patient to have CPAP through [employer]. The patient has baseline shortness of breath and less cough than he had on previous days. The patient is looking forward to going home. We will make contact with [facility] for the patient to pursue bariatric care. Exam - Constitutional Vitals: Period Temp Pulse Resp BP Sys/Anderson Pulse Ox Last 24 Hr 96.7 F-98.8 F 89-135 18-98 95-124/54-84 95-100 Exam: Constitutional System: Mild distress. No tremulousness. Massive obesity Head: Normocephalic, atraumatic. Ears, Nose and Throat System: No evidence of Otitis or Mastoiditis. No epistaxis or discharge Eyes System: Pupils equal, round, and reactive. Extraocular muscles intact. Neck: Supple, without adenopathy, No jugular venous distention. No thyromegaly , neck mass, or prior surgery apparent. Respiratory System: Chest clear to auscultation; small lung volumes. Cardiovascular System: Heart with regular rate and rhythm. No murmur. GI System: Abdomen soft, massively obese, nontender. Normo active bowel sounds present. Musculoskeletal System: limbs with 2+ brawny chronic pedal edema. Full distal pulses. Neurological System: No discernable sensory deficit. No aphasia Psychiatric System: Conversation is rational - Expanded ENT Exam Mouth exam: Present: moist Results - Labs CBC & BMP: 02/21/17 05:53 02/22/17 03:30 Lab Results: I have reviewed the past 24 hour labs Specialty Discharge - Follow Up or Referrals
[2017-02-22] MEDS ORDERED: ONDANSETRON 4 MG/2 ML VIAL ONE (17:40)
[2017-02-22] MEDS ORDERED: ONDANSETRON 4 MG/2 ML VIAL IV PRN (17:51)
[2017-02-22] MEDS: ACETAMINOPHEN 325 MG TABLET PO PRN (23:40)
[2017-02-23] MEDS: ALBUTEROL 2.5 MG/3 ML NEB RESP TX SCH ×3 (01:25→13:59)
--- NOTE | 2017-02-23 06:44 | XRay Report ---
Exam: XR chest 1V portable Date: 02/23/2017 4:00 AM Indication: Pneumonia CHF Comparison: 02/20/2017 Technical: AP portable Findings: Cardiomegaly present with questionable tiny low volume left effusion and mild shunt vascularity. No pneumothorax or consolidations clearly seen. Impression: 1. Cardiomegaly with minimal shunt vascularity CHF questioned. Findings similar to previous study PROCEDURE INTERPRETED AT [facility] DEPARTMENT OF RADIOLOGY Final Report Signed by: Dr. Dean Cormier
[2017-02-23 07:09] LABS: Calcium 8.6 MG/DL (8.5-10.1); Osmolality,Calculated 281.3 MOS/KG (273-304); Potassium 3.8 MMOL/L (3.5-5.1)
--- NOTE | 2017-02-23 08:22 | Pulmonology Progress Note ---
Pulmonary - PN: Subj Interval history: This 26-year-old white male has severe obstructive sleep apnea and obesity hypoventilation syndrome. His PCO2 yesterday was 50 on 3 L of nasal oxygen with a PO2 of 108. We need to reduce his oxygen to 1 L during the day and he may not need any at all during the daytime. Just needs an oxygen saturation of 88% or higher. He must be compliant with his CPAP at night. Appreciate Dr. Pina's help in getting his equipment updated. He of course also has severe cardiomyopathy. Patient used CPAP night before last but a little less so last night. He said that there was no water put in the humidifier. This morning he was asleep where he has nasal oxygen. He still short of breath and has a good bit of leg edema. I am going to give him some extra IV Lasix. It will be a while before he can mobilize enough edema. I have started him on low-dose Diamox. We need to watch for acidosis. 02/21/17 patient is using his CPAP at night. He still has some cough and sputum production and has to take the mask off from time to time. Oxygen saturation is acceptable during the daytime off oxygen. The bed scales have apparently been re-zeroed and he is now listed as weighing 660 pounds rather than 560 pounds. In any rate he needs substantial weight loss over time obviously. He is still having some coughing and wheezing and his bronchopneumonia has not resolved as yet. Also being treated for congestive heart failure with an ejection fraction 15% 02/22/2017 patient is doing better. Lungs sound better. Oxygen saturation on room air in mid 90s. I discussed with him the need for significant weight loss and suggested that he find a program for that perhaps at [facility]. We will ask the criminal justice social worker to look into that. He is about back to his baseline status otherwise. Does need a functioning CPAP equipment at home, prior to discharge 02/23/2017 this morning the patient was not wearing his CPAP. He said he did not sleep last night so he did not wear it. I advised him to put it on when he goes to bed whether he sleeps a lot. He complains that his feet hanging off the end of the bed and is uncomfortable where he cannot sleep. He has a pretty long bed he just lives down in it. I have asked nursing service to help with this. Exam (Progress Note) - Constitutional Vitals: Period Temp Pulse Resp BP Sys/Anderson Pulse Ox Last 24 Hr 96.7 F-98.5 F 80-124 18-32 90-111/46-57 93-100 Exam: Patient is alert, on room air with saturation 93%. Vital signs normal other than his weight that has apparently been difficult to quantify. His pupils are reactive, neck is supple. Chest sounds clear this morning. Heart normal rate and rhythm no murmurs. Abdomen grand obese. Extremities he has some chronic nonpitting edema in his lower legs. Calves nontender. Results - Labs CBC & BMP: 02/21/17 05:53 02/23/17 05:56 Lab Results: I have reviewed the past 24 hour labs - Diagnostic Findings Procedure: Chest x-ray: image reviewed by me (Cardiomegaly. Appears to be still a little wet. Difficult to tell with his thick chest wall.) Assessment and Plan (1) Community acquired pneumonia Status: Acute Assessment and plan: With the yellow sputum production it is likely that he has bronchopneumonia. Agree with empiric antibiotics. White blood count only 10,000. Patient has not had fever. 02/17/2017 he is being empirically treated for pneumonia. Probably has a patchy infiltrate in the right lung. Had change in his sputum color to yellow. Would treat him for about a week with antibiotics. 02/18/2017 continuing empiric antibiotics. He is on Levaquin. Sputum culture shows normal katihe. Blood cultures negative 2. 02/21/2017 continuing antibiotics. Cultures have been negative. 02/22/2017 pneumonia appears to be improved. Recheck chest x-ray tomorrow. Consider discharge when CPAP equipment is arranged at home. 02/23/2017 clinically improved. Current Visit: Yes (2) CHF (congestive heart failure) Status: Chronic Assessment and plan: BNP only slightly elevated to 60. Ejection fraction is 15%. He has some chronic leg edema it has not gotten worse lately. Continue cautious diuresis. 02/17/2017 severe cardiomyopathy. I think his fluid status is about right at present. 02/18/2017 severe cardiomyopathy. Still has marked peripheral edema. Bumping with Lasix 02/21/2017 on multiple medications followed by cardiology. 02/22/2017 this appears to be controlled fairly well with current medications. BNP remains slightly elevated at 300. Likely will stay elevated. 02/23/2017 clinically improved but still might be a little wet. Need to diurese a little further Current Visit: Yes Qualifiers: Congestive heart failure type: systolic Congestive heart failure chronicity : chronic Qualified Code(s): I50.22 - Chronic systolic (congestive) heart failure (3) Morbid (severe) obesity with alveolar hypoventilation Status: Chronic Assessment and plan: I suspect he has obesity hypoventilation syndrome. We need ABGs. May need to use Diamox on him. 02/17/2017 long-term weight loss is very important. I am adding a little bit of Diamox due to the elevated PCO2. Need to watch his pH. Want to get his bicarb level down to about 23 or 24. 02/18/2017 bicarb level is 28. Trying to diurese him. Weight is stable. Firmly reminded patient of the importance of using the CPAP every night and learning how to take care of his own equipment when he gets it. 02/21/2017 continuing with CPAP at night. Continue with diuretics. Not requiring oxygen during the daytime. He is on low-dose Diamox. 02/22/2017 discussed with him getting into a bariatric program at a tertiary care location such as [facility]. 02/23/2017 patient needs to use his CPAP on a nightly basis. This was once again reiterated. Current Visit: Yes (4) Obstructive sleep apnea on CPAP Status: Chronic Assessment and plan: Patient has been noncompliant with his CPAP. Will get sleep services to sleep. He apparently does not like the way his nasal pillars fit. 02/17/2017 compliant with his CPAP last night. Will be very important going forward. 02/18/2017 arrangements being made for new equipment at home. Appreciate Dr. Pina's help. 02/21/2017 using CPAP more now. Arranging for home unit. 02/22/2017 appears to be using his CPAP at night. Definitely needs to continue this postdischarge. 02/23/2017 did not use CPAP last night. Says that he did not use it because he did not sleep. Was advised to use it whether he sleeps well not at night. Current Visit: Yes Specialty Discharge - Follow Up or Referrals
--- NOTE | 2017-02-23 09:02 | Discharge Summary ---
Hospital Course - Hospital Course Hospital Course: The patient was admitted to the hospital with respiratory failure on account of obesity hypoventilation syndrome causing cor pulmonale and exacerbated by pneumonia. The patient was admitted to the hospital and treated for acute on chronic congestive heart failure with reduced ejection fraction. The patient had consultations with pulmonary, cardiology, and nephrology physicians. The patient's lung infection improved and wheezing got better. The patient had some successful diuresis. The patient is now on oral medications and has stabilized. The patient was advised to continue seeking weight reduction surgery. He has been evaluated in [place] previously. Dr. Pina was consulted concerning obesity hypoventilation and arrange for the patient to have a CPAP through [facility]. The patient has now met maximum hospital benefit and is discharged home. On the discharge visit the patient's chest is clear although lung volumes are small. Abdomen is soft. Discharge time including examination, instructions to the patient, and arrange in the summary and orders required 38 minutes. I coordinated care with the case loader operator. - Time spent with patient Time with patient DS: Greater than 30 minutes Diagnosis - Discharge Diagnosis (1) Community acquired pneumonia Status: Resolved (2) CHF (congestive heart failure) Status: Chronic (3) Morbid (severe) obesity with alveolar hypoventilation Status: Chronic Specialty Discharge - Follow Up or Referrals Discharge Plan - Discharge Data Disposition: Disch To Home/Self Care Condition at Discharge: Stable Discharge Diet: heart healthy Activity: resume usual activities as tolerated - Discharge Medications New Albuterol Neb [Proventil Neb] 2.5 mg RESP TX TID #100 Carvedilol [Coreg] 37.5 mg PO BID #100 tablet Torsemide 100 mg PO DAILY #90 tablet Valsartan [Diovan] 40 mg PO BID #100 tablet acetaZOLAMIDE TAB [Diamox Tab] 125 mg PO BID #120 tablet Isosorbide Dinitrate [Isordil] 20 mg PO TID #100 tablet Continue Hydralazine HCl 25 mg PO BID Digoxin 125 mcg PO DAILY Aspirin [Aspirin EC] 81 mg PO DAILY Spironolactone [Aldactone] 25 mg PO DAILY #60 Discontinued Cholecalciferol (Vitamin D3) [Vitamin D3] 1,000 unit PO DAILY Torsemide 20 mg PO BID Losartan Potassium 100 mg PO DAILY hydroCHLOROthiazide [Hydrochlorothiazide] 50 mg PO BID Carvedilol [Coreg] 25 mg PO BID - Follow Up or Referral - Forms/Instructions Instructions: Heart Failure (DC), Community-acquired Pneumonia (DC), Community- acquired Pneumonia (GEN) Exam - Constitutional Vitals: Period Temp Pulse Resp BP Sys/Anderson Pulse Ox Last 24 Hr 96.7 F-98.5 F 80-124 18-32 90-111/46-57 93-100 Discharge Results Procedures and tests throughout hospitalization: Pending Orders 02/13/17 07:55 Legionella Ag, Urine Routine Streptococcus pneumoniae Ag, U Routine Labs on day of discharge: Labs from last 24 hours 02/23/17 05:56 Sodium 141 Potassium 3.8 Chloride 105 Carbon Dioxide 28 Anion Gap 11.8 BUN 15 Creatinine 1.10 GFR Calculation 212 BUN/Creatinine Ratio 13.00 Glucose 91 Calculated Osmolality 281.3 Calcium 8.6 DS: Provider Date of admission: 02/13/17 05:29 Primary care physician: . No PCP Attending physician on admission: Jimi Ren MD Consults: 02/14/17 13:40 Consult to Physician [CONS] Routine Comment: On-call physician/pulmonary edema/acute CHF Consulting Provider: Consulting Provider Notified: Yes When should Consulting Provider be notified: Now Consult to Specialist Group: Cardiology When should Consulting Provider be notified: Now Person Notified: roosevelt serrato Date Notified: 02/15/17 Time Notified: 08:00 02/15/17 14:41 Consult to Physician [CONS] Routine Comment: dyspnea hx CHF, morbid obesity, ELINA.Please eval/tx Consulting Provider: Christo Luna Consulting Provider Notified: Yes When should Consulting Provider be notified: Now Consult to Specialist Group: Pulmonology When should Consulting Provider be notified: Now Person Notified: dr. luna Date Notified: 02/16/17 Time Notified: 07:13 02/16/17 07:47 Consult to Sleep Center [CONS] Routine Reason for Sleep Center: Sleep Center Physician Consult Comment: Sleep apnea, noncompliant with CPAP, likely [facility] also 02/16/17 15:19 Consult to Sleep Center [CONS] Routine Reason for Sleep Center: Sleep Center Physician Consult Comment: ELINA; cant use machine; ef 15% 02/17/17 16:13 Consult to Case Mgmt/Social Srvs [CONS] Routine Reason for Case Mgmt/Social Srvs: Equipment Consult Comment: please arrange for home oxygen at discharge 02/22/17 08:10 Consult to Case Mgmt/Social Srvs [CONS] Routine Reason for Case Mgmt/Social Srvs: Other Consult Comment: See if patient qualifies for bariatric program at [facility] Discharging clinician: Arnulfo Gallo MD
[2017-02-23] MEDS: TORSEMIDE 20 MG TABLET PO SCH (09:27)
[2017-02-23] MEDS: ENOXAPARIN 40 MG/0.4 ML SYRINGE SUBCUT SCH (09:27)
[2017-02-23] MEDS: SPIRONOLACTONE 25 MG TABLET PO SCH (09:28)
[2017-02-23] MEDS: DIGOXIN 0.125 MG TABLET PO SCH (09:28)
[2017-02-23] MEDS: acetaZOLAMIDE 250 MG TABLET PO SCH (09:29)
[2017-02-23] MEDS: LEVOFLOXACIN 500 MG TABLET PO SCH (09:29)
[2017-02-23] MEDS: CARVEDILOL 25 MG TABLET PO SCH (09:30)
[2017-02-23] MEDS: hydrALAZINE 25 MG TABLET PO SCH (09:32)
[2017-02-23] MEDS: ISOSORBIDE DINITRATE 20 MG TABLET PO SCH (09:32)
[2017-02-23] MEDS: VALSARTAN 80 MG TABLET PO SCH (09:32)
[2017-02-23 11:53] VITALS: BP 107/52
== END 2017-02-23 14:45 | disposition home or self-care (01) | DRG 194 ==
LOC: N.EDINP 00:53 → N.ED 00:53 → SUATTDRO 05:29 → OBSVTOIN 05:29 → N.3E 06:06
PROVIDERS: ADMIT Student in an Organized Health Care Education/Training Program; ATTEND Internal Medicine

== ENCOUNTER 2020-03-16 18:08 | Inpatient (IN) ==
[2020-03-16] MEDS ORDERED: methylPREDNISolone SOD SUC 125 MG/2 ML VIAL IV STA (18:34)
[2020-03-16] MEDS ORDERED: AZITHROMYCIN INJ 500 MG in SODIUM CHLORIDE 0.9% 250 ML IV STA (18:34)
[2020-03-16 18:51] LABS: Basophils % 0.5 % (0.0-0.8); Hemoglobin 13.5 GM/DL (14.0-18.0); Immature Granulocytes % 0.5 %; Immature Granulocytes Absolute 0.02 #; Mean Platelet Volume 10.5 FL (9.6-12.0)
[2020-03-16] MEDS: TERBUTALINE 1 MG/1 ML VIAL SUBCUT SCH ×2 (19:00→19:30)
[2020-03-16 19:03] LABS: Alanine Aminotransferase 24 U/L (16-61); Albumin 2.8 G/DL (3.4-5.0); Alkaline Phosphatase 88 U/L (45-117); Aspartate Amino Transferase 26 U/L (0-37); Blood Urea Nitrogen 48 MG/DL (7-18); Calcium 9.1 MG/DL (8.5-10.1); Estimated Glom Filtration Rate 105 ML/MIN; Ferritin 81.3 ng/ml (26-388); Glucose 95 MG/DL (74-106); Osmolality,Calculated 280.2 MOS/KG (273-304); Total Protein 7.2 G/DL (6.4-8.3); Troponin I 0.032 NG/ML (0.00-0.045)
[2020-03-16 19:06] LABS: INR 1.2; PT Patient Result 12.9 SECS (9.8-11.9); Partial Thromboplastin Time 37.9 SECS (23.9-33.8)
[2020-03-16 19:12] LABS: Eosinophils # 0.2 10*3/uL (0.0-0.87); Eosinophils % 4.4 % (0.00-10.9); Hematocrit 44.5 VOL% (42.0-52.0); Lymphocytes # 1.6 10*3/uL (1.4-4.0); Lymphocytes % 42.8 % (21.2-54.2); Mean Corpuscular HGB Conc 30.3 GM/DL (32-36); Mean Corpuscular Volume 74.2 FL (87-102); Monocytes % 13.6 % (1.7-12.7); NRBC # 0.02 10*3/uL; Neutrophils % 38.2 % (38.7-73.9); Platelet Count 198 T/CUMM (130-400); Red Cell Distribution Width 20.2 % (9.3-17.3); White Blood Count 3.7 T/CUMM (4-12)
[2020-03-16 19:20] LABS: Apearance,Urine CLEAR (Clear); Bilirubin,Urine Negative (Negative); Blood, Urine Small mg/dL (Negative); Glucose,Urine (UA) Negative (Negative); Hyaline Casts,Urine 17 /LPF (0-3); Ketones,Urine Negative (Negative); Nitrite,Urine Negative (Negative); Protein,Urine Negative; RBC,Urine 10 /HPF (0-4); Squamous Epithelial Cell,Urine Occasional /HPF (0-10); Urine Color Yellow (Yellow); Urine Specific Gravity 1.008 (1.001-1.035); Urine Urobilinogen < 2.0 EU/DL (0.2-1.0); WBC,Urine <1 /HPF (0-6)
[2020-03-16 19:36] LABS: Anisocytosis 1+; Eosinophils 5 % (0-10); Lymphocytes 42 % (20-55); Microcytosis 1+; Segmented Neutrophils 40 % (50-85); Total Cells Counted 100
[2020-03-16 19:37] LABS: Polychromasia Few; Target Cells Few; Tear Drop Cells Few
[2020-03-16 19:38] LABS: Platelet Estimate Adequate
[2020-03-16 19:47] LABS: Barbiturates Screen,Urine Negative (Negative); Benzodiazepines Screen,Urine Negative (Negative); Cannabinoid Screen,Urine Negative (Negative); Opiate Screen,Urine Positive (Negative); Phencyclidine Screen,Urine Negative (Negative)
[2020-03-16] MEDS ORDERED: FUROSEMIDE 40 MG/4 ML VIAL IV STA ×2 (19:55→23:05)
[2020-03-16] MEDS ORDERED: guaiFENesin/DM ER 600-30 MG TABLET PO PRN (23:05)
[2020-03-16] MEDS ORDERED: DEXTROSE 10% 25 GM/250 ML BAG IV PRN (23:05)
[2020-03-16] MEDS ORDERED: ACETAMINOPHEN 325 MG TABLET PO PRN (23:05)
[2020-03-16] MEDS ORDERED: GLUCAGON 1 MG VIAL IM PRN (23:05)
[2020-03-16] MEDS ORDERED: hydrALAZINE 20 MG/1 ML VIAL IV PRN (23:05)
[2020-03-16] MEDS ORDERED: diphenhydrAMINE CAP 25 MG CAPSULE PO PRN (23:05)
[2020-03-16] MEDS ORDERED: NICOTINE 21 MG/24 HR PATCH TRANSDERM PRN (23:05)
[2020-03-17] MEDS ORDERED: ALBUTEROL 2.5 MG/3 ML NEB RESP TX PRN (00:26)
[2020-03-17] MEDS ORDERED: DICYCLOMINE 20 MG TABLET PO PRN (00:26)
[2020-03-17] MEDS: ONDANSETRON 4 MG/2 ML VIAL IV PRN ×2 (01:37→05:36)
[2020-03-17] MEDS: INSULIN REGULAR 100 UNIT/ML SUBCUT SCH ×5 (01:38→21:58)
[2020-03-17] MEDS ORDERED: PNEUMOCOCCAL VACCINE (23 VALENT) 0.5 ML VIAL IM ONE (02:30)
[2020-03-17] MEDS ORDERED: PIOGLITAZONE 15 MG TABLET PO SCH (08:00)
[2020-03-17] MEDS ORDERED: SOTALOL 80 MG TABLET PO SCH (09:00)
[2020-03-17] MEDS ORDERED: predniSONE 20 MG TABLET PO SCH (09:00)
[2020-03-17] MEDS ORDERED: COLCHICINE 0.6 MG PO SCH (09:00)
[2020-03-17] MEDS ORDERED: POTASSIUM CHLORIDE 20 MEQ TABLET PO SCH (09:00)
[2020-03-17] MEDS ORDERED: BUMETANIDE 1 MG TABLET PO SCH (09:00)
[2020-03-17] MEDS ORDERED: INDOMETHACIN 25 MG CAPSULE PO SCH (09:00)
[2020-03-17] MEDS ORDERED: POTASSIUM CHLORIDE 20 MEQ TABLET PO PRN (09:08)
[2020-03-17] MEDS: ISOSORBIDE DINITRATE 10 MG TABLET PO SCH ×3 (11:04→21:52)
[2020-03-17] MEDS: SPIRONOLACTONE 25 MG TABLET PO SCH ×2 (11:04→11:08)
[2020-03-17] MEDS: FERROUS SULFATE 325 MG TABLET PO SCH ×3 (11:04→21:52)
[2020-03-17] MEDS: ASPIRIN EC 81 MG TABLET PO SCH (11:05)
[2020-03-17] MEDS: MULTIVITAMIN (CENTRUM) TABLET PO SCH (11:05)
[2020-03-17] MEDS: TAMSULOSIN 0.4 MG CAPSULE PO SCH (11:05)
[2020-03-17] MEDS: allopurinoL 100 MG TABLET PO SCH (11:05)
[2020-03-17] MEDS: METOPROLOL SUCCINATE XL 25 MG TABLET PO SCH (11:06)
[2020-03-17] MEDS: DIGOXIN 0.125 MG TABLET PO SCH (11:06)
[2020-03-17] MEDS: hydrALAZINE 10 MG TABLET PO SCH ×3 (11:06→21:52)
[2020-03-17] MEDS: APIXABAN 5 MG TABLET PO SCH ×2 (11:06→21:52)
[2020-03-17] MEDS: FUROSEMIDE 40 MG/4 ML VIAL IV SCH ×2 (11:09→17:32)
[2020-03-17] MEDS: MAGNESIUM OXIDE 400 MG TABLET PO SCH ×3 (11:23→21:52)
[2020-03-17] MEDS ORDERED: predniSONE 20 MG TABLET PO PRN (12:30)
[2020-03-17] MEDS: oxyCODONE/ACETAMINOPHEN 5-325 MG TABLET PO PRN ×2 (14:29→18:47)
[2020-03-17] MEDS: metOLazone 2.5 MG TABLET PO SCH (14:29)
[2020-03-17] MEDS: COLCHICINE 0.6 MG CAPSULE PO SCH ×2 (17:32→21:52)
[2020-03-17] MEDS: MORPHINE 4 MG/1 ML VIAL IV PRN (23:10)
[2020-03-18 03:26] LABS: Basophils % 0.3 % (0.0-0.8); Eosinophils % 0.1 % (0.00-10.9); Hematocrit 45.1 VOL% (42.0-52.0); Hemoglobin 13.9 GM/DL (14.0-18.0); Immature Granulocytes % 0.3 %; Immature Granulocytes Absolute 0.02 #; Lymphocytes # 1.8 10*3/uL (1.4-4.0); Lymphocytes % 23.6 % (21.2-54.2); Mean Corpuscular HGB Conc 30.8 GM/DL (32-36); Mean Corpuscular Volume 74.1 FL (87-102); Mean Platelet Volume 9.9 FL (9.6-12.0); Monocytes % 7.8 % (1.7-12.7); Neutrophils % 67.9 % (38.7-73.9); Platelet Count 184 T/CUMM (130-400); Red Blood Count 6.09 MC/CUMM (3.8-5.5); Red Cell Distribution Width 20.3 % (9.3-17.3); White Blood Count 7.7 T/CUMM (4-12)
[2020-03-18 03:45] LABS: Calcium 9.2 MG/DL (8.5-10.1); Osmolality,Calculated 276.5 MOS/KG (273-304)
[2020-03-18] MEDS: oxyCODONE/ACETAMINOPHEN 5-325 MG TABLET PO PRN ×3 (03:56→16:17)
[2020-03-18] MEDS: MULTIVITAMIN (CENTRUM) TABLET PO SCH (09:04)
[2020-03-18] MEDS: allopurinoL 100 MG TABLET PO SCH (09:04)
[2020-03-18] MEDS: COLCHICINE 0.6 MG CAPSULE PO SCH ×3 (09:04→21:12)
[2020-03-18] MEDS: MAGNESIUM OXIDE 400 MG TABLET PO SCH ×3 (09:04→21:12)
[2020-03-18] MEDS: TAMSULOSIN 0.4 MG CAPSULE PO SCH (09:04)
[2020-03-18] MEDS: METOPROLOL SUCCINATE XL 25 MG TABLET PO SCH (09:04)
[2020-03-18] MEDS: ASPIRIN EC 81 MG TABLET PO SCH (09:04)
[2020-03-18] MEDS: FERROUS SULFATE 325 MG TABLET PO SCH ×3 (09:04→21:11)
[2020-03-18] MEDS: DIGOXIN 0.125 MG TABLET PO SCH (09:05)
[2020-03-18] MEDS: metOLazone 2.5 MG TABLET PO SCH (09:06)
[2020-03-18] MEDS: APIXABAN 5 MG TABLET PO SCH ×2 (09:06→21:12)
[2020-03-18] MEDS: INSULIN REGULAR 100 UNIT/ML SUBCUT SCH ×4 (09:06→21:17)
[2020-03-18] MEDS: FUROSEMIDE 40 MG/4 ML VIAL IV SCH ×2 (09:06→16:15)
[2020-03-18] MEDS: hydrALAZINE 10 MG TABLET PO SCH ×3 (09:07→21:13)
[2020-03-18] MEDS: ISOSORBIDE DINITRATE 10 MG TABLET PO SCH ×3 (10:25→21:12)
[2020-03-18] MEDS ORDERED: POTASSIUM CHLORIDE 20 MEQ TABLET PO ONE ×2 (11:18→14:00)
[2020-03-18] MEDS ORDERED: FUROSEMIDE 40 MG/4 ML VIAL IV ONE (13:00)
[2020-03-18] MEDS: MORPHINE 4 MG/1 ML VIAL IV PRN ×2 (13:30→21:12)
[2020-03-19] MEDS: MORPHINE 4 MG/1 ML VIAL IV PRN ×6 (01:22→21:32)
[2020-03-19 07:14] LABS: Basophils % 0.7 % (0.0-0.8); Eosinophils # 0.1 10*3/uL (0.0-0.87); Eosinophils % 1.2 % (0.00-10.9); Hematocrit 43.3 VOL% (42.0-52.0); Hemoglobin 13.3 GM/DL (14.0-18.0); Immature Granulocytes % 0.3 %; Immature Granulocytes Absolute 0.02 #; Lymphocytes # 2.4 10*3/uL (1.4-4.0); Mean Corpuscular HGB Conc 30.7 GM/DL (32-36); Mean Corpuscular Volume 73.5 FL (87-102); Mean Platelet Volume 10.6 FL (9.6-12.0); Monocytes % 10.8 % (1.7-12.7); Platelet Count 187 T/CUMM (130-400); Red Blood Count 5.89 MC/CUMM (3.8-5.5); Red Cell Distribution Width 20.3 % (9.3-17.3); White Blood Count 5.7 T/CUMM (4-12)
[2020-03-19 07:32] LABS: Calcium 9.1 MG/DL (8.5-10.1); Osmolality,Calculated 275.4 MOS/KG (273-304)
[2020-03-19] MEDS: INSULIN REGULAR 100 UNIT/ML SUBCUT SCH ×4 (09:22→20:41)
[2020-03-19] MEDS: FUROSEMIDE 40 MG/4 ML VIAL IV SCH ×2 (09:24→15:20)
[2020-03-19] MEDS: MULTIVITAMIN (CENTRUM) TABLET PO SCH (09:25)
[2020-03-19] MEDS: ISOSORBIDE DINITRATE 10 MG TABLET PO SCH ×3 (09:25→21:35)
[2020-03-19] MEDS: COLCHICINE 0.6 MG CAPSULE PO SCH ×3 (09:25→21:36)
[2020-03-19] MEDS: MAGNESIUM OXIDE 400 MG TABLET PO SCH ×3 (09:25→21:40)
[2020-03-19] MEDS: metOLazone 2.5 MG TABLET PO SCH (09:26)
[2020-03-19] MEDS: allopurinoL 100 MG TABLET PO SCH (09:27)
[2020-03-19] MEDS: DIGOXIN 0.125 MG TABLET PO SCH (09:27)
[2020-03-19] MEDS: APIXABAN 5 MG TABLET PO SCH ×2 (09:27→21:36)
[2020-03-19] MEDS: ASPIRIN EC 81 MG TABLET PO SCH (09:27)
[2020-03-19] MEDS: METOPROLOL SUCCINATE XL 25 MG TABLET PO SCH (09:27)
[2020-03-19] MEDS: FERROUS SULFATE 325 MG TABLET PO SCH ×3 (09:28→21:38)
[2020-03-19] MEDS: TAMSULOSIN 0.4 MG CAPSULE PO SCH (09:28)
[2020-03-19] MEDS: hydrALAZINE 10 MG TABLET PO SCH ×3 (09:28→21:38)
[2020-03-19] MEDS ORDERED: MAGNESIUM SULF RIDER 2 GM in PREMIX 1 EACH IV ONE (10:19)
[2020-03-19] MEDS ORDERED: POTASSIUM CHLORIDE 20 MEQ TABLET PO ONE (10:19)
[2020-03-19] MEDS: metOLazone 5 MG TABLET PO SCH (12:43)
[2020-03-19] MEDS: ONDANSETRON 4 MG/2 ML VIAL IV PRN (21:30)
[2020-03-20] MEDS: ONDANSETRON 4 MG/2 ML VIAL IV PRN ×2 (01:54→06:02)
[2020-03-20] MEDS: MORPHINE 4 MG/1 ML VIAL IV PRN ×4 (01:54→14:37)
[2020-03-20 03:26] LABS: Calcium 9.3 MG/DL (8.5-10.1); Osmolality,Calculated 278.8 MOS/KG (273-304)
[2020-03-20] MEDS: oxyCODONE/ACETAMINOPHEN 5-325 MG TABLET PO PRN ×3 (04:26→13:18)
[2020-03-20] MEDS ORDERED: POTASSIUM CHLORIDE 20 MEQ TABLET PO PRN (07:16)
[2020-03-20] MEDS ORDERED: MAGNESIUM SULF RIDER 2 GM in PREMIX 1 EACH IV PRN (07:16)
[2020-03-20] MEDS ORDERED: MAGNESIUM SULF RIDER 4 GM in PREMIX 1 EACH IV PRN (07:16)
[2020-03-20] MEDS ORDERED: POTASSIUM CHLORIDE 20 MEQ TABLET PO ONE (07:37)
[2020-03-20] MEDS: INSULIN REGULAR 100 UNIT/ML SUBCUT SCH ×2 (08:40→13:27)
[2020-03-20] MEDS: ISOSORBIDE DINITRATE 10 MG TABLET PO SCH ×2 (08:41→15:14)
[2020-03-20] MEDS: FERROUS SULFATE 325 MG TABLET PO SCH ×2 (08:42→15:14)
[2020-03-20] MEDS: metOLazone 5 MG TABLET PO SCH (08:42)
[2020-03-20] MEDS: MAGNESIUM OXIDE 400 MG TABLET PO SCH ×2 (08:42→15:14)
[2020-03-20] MEDS: DIGOXIN 0.125 MG TABLET PO SCH (08:42)
[2020-03-20] MEDS: ASPIRIN EC 81 MG TABLET PO SCH (08:45)
[2020-03-20] MEDS: hydrALAZINE 10 MG TABLET PO SCH ×2 (08:45→15:14)
[2020-03-20] MEDS: METOPROLOL SUCCINATE XL 25 MG TABLET PO SCH (08:47)
[2020-03-20] MEDS: MULTIVITAMIN (CENTRUM) TABLET PO SCH (08:48)
[2020-03-20] MEDS: COLCHICINE 0.6 MG CAPSULE PO SCH ×2 (08:48→15:14)
[2020-03-20] MEDS: APIXABAN 5 MG TABLET PO SCH (08:48)
[2020-03-20] MEDS: allopurinoL 100 MG TABLET PO SCH (08:49)
[2020-03-20] MEDS: TAMSULOSIN 0.4 MG CAPSULE PO SCH (08:49)
[2020-03-20] MEDS: FUROSEMIDE 40 MG/4 ML VIAL IV SCH ×2 (08:51→16:06)
[2020-03-20] MEDS ORDERED: SPIRONOLACTONE 25 MG TABLET PO SCH (09:00)
[2020-03-20 12:15] VITALS: BP 124/64
== END 2020-03-20 17:39 | disposition home health service (06) | DRG 291 ==
LOC: EDUNIT# → EDBD → N.ED 18:08 → N.EDINP 18:08 → N.TELES 03-17 00:25 → SUATTDRO 03-18 13:27
PROVIDERS: ADMIT Internal Medicine; ATTEND Internal Medicine